=== PATIENT | female | born 1955 | race Caucasian/White ===

== ENCOUNTER → 2016-04-14 | Day surgery (SDC) | payer BC ==
[2016-03-30 14:51] VITALS: Ht 165.1 cm; Wt 110.5 kg
[~2016-04-14] VITALS: Ht 165.1 cm; Wt 110.5 kg
[~2016-04-14] MED LIST: 500ML BSS 0.3ML EPI 1:1000PF IRRIG ONE; ACETAMINOPHEN 325 MG TAB PO PRN; AMVISC PLUS 0.8ML SYRINGE INT OCU ONE; ATOR-22 PO; ATROPINE SULFATE 0.1 MG/ML 5ML SYR IV PRN; AcetaZOLAMIDE 250 MG TAB PO SCH; B-CO1CAP5 PO; BETAXOLOL HCL 0.25% OP SUSP PER DROP CHARGE OPR SCH; BRIMONIDINE TART 0.2% OP SOLN PER DROP CHARGE ONE; BSS FLUSH ONE; BUPR150T5 PO; CHOL1TAB46 PO; CLB/200 PO; DEXL60CA4 PO; ESCI10TA17 PO; EpINEphrine INJ 1MG/ML AMP 1 MG/ML AMP ONE; GABA-112 PO; IMD/2 PO; LACTATED RINGER'S 1000ML 500 ML IV SCH; LEVO125T72 PO; LIDOCAINE 4% OP SOLN DROP CHARGE ONE; LIDOCAINE 4% OP SOLN DROP CHARGE OPR SCH; LIDOCAINE HCL 1% MPF 2 ML VIAL ONE; LIOT50TA3 PO; LVQ750 PO; MELATAB2 PO; MIDAZOLAM HCL 1 MG/ML 2ML VIAL ONE; MIX: 4ML BSS 1ML EPI 1:1000 PF INSTIL ONE; MOXIFLOXACIN OPH SOLN PER DROP CHARGE ONE; NF1317 PO; OCUCOAT 1 ML SOLN IO ONE; POVIDONE-IODINE OP SOLN 30 ML BTL ONE; PRED1SUS3 OPR; PROPARACAINE 0.5% OP SOLN PER DROP CHARGE OPR SCH; RANI300T2 PO; TOBRAMYCIN/DEXAMETHASONE OPH OINT PER APPLN CHARGE ONE; TRAM-10 PO; VISCOAT 0.5ML SYRINGE INT OCU ONE; ZOLP10TA PO
--- NOTE | 2016-04-14 06:29 | History & Physical Bridge - [place] ---
H&P Re-Evaluation Bridge Note: I have examined the patient, reviewed the History & Physical and in the interval since the performance of the History & Physical I have noted the following changes of clinical significance: No changes noted
[2016-04-14] MEDS: PHENYLEPHRINE HCL 2.5% OP SOLN PER DROP CHARGE OPR SCH ×2 (06:44→06:49)
[2016-04-14] MEDS: TROPICAMIDE 1% OP SOLN PER DROP CHARGE OPR SCH ×2 (06:45→06:50)
[2016-04-14] MEDS: CYCLOPENTOLATE HCL 1% OP SOLN PER DROP CHARGE OPR SCH ×2 (06:46→06:51)
[2016-04-14] MEDS: MOXIFLOXACIN OPH SOLN PER DROP CHARGE OPR SCH ×2 (06:47→06:56)
--- NOTE | 2016-04-14 07:37 | Discharge Instructions-SurgCtr ---
Discharge Instructions Visit Reason for Visit: Cataract Right Eye Discharge Discharge Diagnosis / Problem: lens implant right eye Discharge Goals Goal(s): Improve function Activity Recommendations Activity Limitations: resume your previous activity Lifting Limitations: no more than 10 pounds Exercise/Sports Limitations: gradually increase as tolerated May Resume Sexual Activity: when tolerated Shower/Bathe: tomorrow Driving or Machine Use: resume 1 day after discharge Anesthesia . Post Anesthesia Instructions: If you have had General Anesthesia or IV Sedation: * Do not drive today. * Resume driving when surgeon permits. * Do not make important decisions or sign legal documents today. * Call surgeon for: 1. Temperature elevations greater than 101 degrees F. 2. Uncontrollable pain. 3. Excessive bleeding. 4. Persistent nausea and vomiting. 5. Medication intolerance (nausea, vomiting or rash). * For nausea and vomiting use only clear liquids such as: tea, soda, bouillon until nausea subsides, then gradually increase diet as tolerated. * If you have any concerns or questions, call your surgeon's office. If physician is unavailable and it is an emergency, call 911 or go to the nearest emergency room. . Instructions / Follow-Up Instructions / Follow-Up ACTIVITY RECOMMENDATIONS: * Light activities. * Mild irritation and blurred vision are common for the first few days. * You may walk outside, read, watch television. * Redness around the white part of the eye is common. MEDICATIONS: Resume previous medications unless instructed otherwise by your surgeon. * Take white Diamox (Acetazolamide) tablet at 1 pm today. Start all eye drops at 1 pm today: * Eye drops (today and tomorrow): Prednisone - one drop in operative eye every 3 hours while awake Ofloxacin - one drop in operative eye every 3 hours while awake SPECIAL CARE INSTRUCTIONS: * Tape plastic shield over eye to sleep at night. Call your doctor at with any concerns or problems. FOLLOW UP VISIT: Follow-up with Dr Morales at [facility] office as scheduled. Diet Recommendations Home Diet: no limitations Procedures Procedures Performed: cataract extraction with lens implant Pending Studies Studies pending at discharge: no Medical Emergencies . Who to Call and When: Medical Emergencies: If at any time you feel your situation is an emergency, please call 911 immediately. . Non-Emergent Contact Non-Emergency issues call your: Gas Plant Technician Call Non-Emergent contact if: your pain is not controlled [phone] . . "Provider Documentation" section prepared by Álvaro Morales.
--- NOTE | 2016-04-14 07:40 | [facility] Operative Report ---
Operative Report Date of Service Apr 14, 2016. Operative Report 1. PREOPERATIVE DIAGNOSIS: Pre Senile nuclear cataract, right eye. 2. POSTOPERATIVE DIAGNOSIS: Pre Senile nuclear cataract, right eye. 3. PROCEDURE: Phacoemulsification of right cataract with posterior chamber lens implant, type Bausch [employer] Lomb, model ZXR00, power +23.0 diopters. ANESTHESIA: Local standby. SURGEON: Dr. Morales. COMPLICATIONS: None. OPERATING TIME: 10 minutes. 4. OPERATION AND FINDINGS: DESCRIPTION OF PROCEDURE: The right pupil was dilated. The anesthetic was administered using a topical technique. The right eye was prepped and draped. A speculum was placed. A clear corneal incision was formed. The chamber was filled with Amvisc Plus and Viscoat. Epinephrine solution was used. A paracentesis was placed. A capsulorrhexis was performed. The nucleus was hydrodissected. A dense lens was removed with phacoemulsification. Time was 8.26 seconds. The aspiration unit was used to remove the cortex. The capsule was filled with Amvisc Plus. The lens implant was folded and placed into the capsule. The incision was hydrated. The Amvisc was aspirated. The wound was secure. The chamber was deep. The pupil was round. TobraDex ointment and Vigamox solution were placed. The speculum was removed. The patient was returned to the Recovery Room in stable condition. I attest to the content of the Intraoperative Record and any orders documented therein. Any exceptions are noted below. The scribe's documentation has been prepared in my presence, under my direction and personally reviewed by me in its entirety. I confirm that the note above accurately reflects all work, treatment, procedures, and medical decision making performed by me. I personally scribed for Álvaro Morales M.D. ([facility]) on 04/14/16 at 07:40. Electronically submitted by Tamara Frost ([email or web address]).
[2016-04-14 07:43] VITALS: TEMP 37
--- NOTE | 2016-04-14 07:59 | Anesthesia Progress Nt - [facility] ---
Anesthesia Post Op Note Date & Time Apr 14, 2016 at 07:58 Vital Signs Vital Signs Past 12 Hours Date Time Temp Pulse Resp B/P Pulse Ox O2 Delivery O2 Flow Rate FiO2 04/14/16 07:43 37.0 64 16 152/102 97 Room Air 04/14/16 06:30 37.0 76 16 161/84 96 Room Air Notes Mental Status: alert / awake / arousable, participated in evaluation Pt Amnestic to Procedure: Yes Nausea / Vomiting: adequately controlled Pain: adequately controlled Airway Patency, RR, SpO2: stable & adequate BP & HR: stable & adequate Hydration State: stable & adequate Anesthetic Complications: no major complications apparent
[2016-04-14 08:09] VITALS: BP 137/94; PULSE 65; O2SAT 99
== END | disposition home or self-care (01) ==
LOC: X.SURG 06:18
PROVIDERS: ATTEND Specialist
DX: H25.11 Age-related nuclear cataract, right eye (principal); E03.9 Hypothyroidism, unspecified; E78.5 Hyperlipidemia, unspecified; M19.90 Unspecified osteoarthritis, unspecified site; K21.9 Gastro-esophageal reflux disease without esophagitis; E66.9 Obesity, unspecified

== ENCOUNTER → 2016-05-12 | Day surgery (SDC) | payer BC ==
[2016-05-07 13:08] VITALS: Ht 165.1 cm; Wt 111.8 kg
[~2016-05-12] VITALS: Ht 165.1 cm; Wt 111.8 kg
[~2016-05-12] MED LIST changes: +BETAXOLOL HCL 0.25% OP SUSP PER DROP CHARGE OPL SCH; -BETAXOLOL HCL 0.25% OP SUSP PER DROP CHARGE OPR SCH; +ENDOCOAT 0.85ML SYRINGE INT OCU ONE; +EpHEDrine SULFATE INJ 50 MG/ML AMP IV PRN; +LIDOCAINE 4% OP SOLN DROP CHARGE OPL SCH; -LIDOCAINE 4% OP SOLN DROP CHARGE OPR SCH; +PROPARACAINE 0.5% OP SOLN PER DROP CHARGE OPL SCH; -PROPARACAINE 0.5% OP SOLN PER DROP CHARGE OPR SCH; -VISCOAT 0.5ML SYRINGE INT OCU ONE
[2016-05-12] MEDS: PHENYLEPHRINE HCL 2.5% OP SOLN PER DROP CHARGE OPL SCH ×2 (09:58→10:09)
[2016-05-12] MEDS: TROPICAMIDE 1% OP SOLN PER DROP CHARGE OPL SCH ×2 (09:59→10:10)
[2016-05-12] MEDS: CYCLOPENTOLATE HCL 1% OP SOLN PER DROP CHARGE OPL SCH ×2 (10:00→10:05)
[2016-05-12] MEDS: MOXIFLOXACIN OPH SOLN PER DROP CHARGE OPL SCH ×2 (10:01→10:11)
--- NOTE | 2016-05-12 10:50 | Discharge Instructions-SurgCtr ---
Discharge Instructions Date of Service May 12, 2016. Visit Reason for Visit: Left Cataract Discharge Discharge Diagnosis / Problem: lens implant left eye Discharge Goals Goal(s): Improve function Activity Recommendations Activity Limitations: resume your previous activity Lifting Limitations: no more than 10 pounds Exercise/Sports Limitations: gradually increase as tolerated May Resume Sexual Activity: when tolerated Shower/Bathe: tomorrow Driving or Machine Use: resume 1 day after discharge Anesthesia . Post Anesthesia Instructions: If you have had General Anesthesia or IV Sedation: * Do not drive today. * Resume driving when surgeon permits. * Do not make important decisions or sign legal documents today. * Call surgeon for: 1. Temperature elevations greater than 101 degrees F. 2. Uncontrollable pain. 3. Excessive bleeding. 4. Persistent nausea and vomiting. 5. Medication intolerance (nausea, vomiting or rash). * For nausea and vomiting use only clear liquids such as: tea, soda, bouillon until nausea subsides, then gradually increase diet as tolerated. * If you have any concerns or questions, call your surgeon's office. If physician is unavailable and it is an emergency, call 911 or go to the nearest emergency room. . Instructions / Follow-Up Instructions / Follow-Up ACTIVITY RECOMMENDATIONS: * Light activities. * Mild irritation and blurred vision are common for the first few days. * You may walk outside, read, watch television. * Redness around the white part of the eye is common. MEDICATIONS: Resume previous medications unless instructed otherwise by your surgeon. * Take white Diamox (Acetazolamide) tablet at 1 pm today. Start all eye drops at 1 pm today: * Eye drops (today and tomorrow): Prednisone - one drop in operative eye every 3 hours while awake Ofloxacin - one drop in operative eye every 3 hours while awake SPECIAL CARE INSTRUCTIONS: * Tape plastic shield over eye to sleep at night. Call your doctor at with any concerns or problems. FOLLOW UP VISIT: Follow-up with Dr Morales at [place] office as scheduled. Diet Recommendations Home Diet: no limitations Procedures Procedures Performed: cataract extraction with lens implant Pending Studies Studies pending at discharge: no Medical Emergencies . Who to Call and When: Medical Emergencies: If at any time you feel your situation is an emergency, please call 911 immediately. . Non-Emergent Contact Non-Emergency issues call your: Driver/Sales Workers Call Non-Emergent contact if: your pain is not controlled [phone] . . "Provider Documentation" section prepared by Álvaro Morales.
--- NOTE | 2016-05-12 10:53 | [facility] Operative Report ---
Operative Report Date of Service May 12, 2016. Operative Report 1. PREOPERATIVE DIAGNOSIS: Pre Senile nuclear cataract, left eye. 2. POSTOPERATIVE DIAGNOSIS: Pre Senile nuclear cataract, left eye. 3. PROCEDURE: Phacoemulsification of left cataract with posterior chamber lens implant, type [employer], model Symfony ZXR00, power +23.5 diopters. ANESTHESIA: Local standby. SURGEON: Dr. Morales. COMPLICATIONS: None. OPERATING TIME: 10 minutes. 4. OPERATION AND FINDINGS: DESCRIPTION OF PROCEDURE: The left pupil was dilated. The anesthetic was administered using a topical technique. The left eye was prepped and draped. A speculum was placed. A clear corneal incision was formed. The chamber was filled with Amvisc Plus and Endocoat. Epinephrine solution was used. A paracentesis was placed. A capsulorrhexis was performed. The nucleus was hydrodissected. The lens was removed with phacoemulsification. Time was 6.12 seconds. The aspiration unit was used to remove the cortex. The capsule was filled with Amvisc Plus. The lens implant was folded and placed into the capsule. The incision was hydrated. The Amvisc was aspirated. The wound was secure. The chamber was deep. The pupil was round. Brimonidine, TobraDex ointment and Vigamox solution were placed. The speculum was removed. The patient was returned to the Recovery Room in stable condition. I attest to the content of the Intraoperative Record and any orders documented therein. Any exceptions are noted below. The scribe's documentation has been prepared in my presence, under my direction and personally reviewed by me in its entirety. I confirm that the note above accurately reflects all work, treatment, procedures, and medical decision making performed by me. I personally scribed for Álvaro Morales M.D. ([facility]) on 05/12/16 at 10:53. Electronically submitted by Tamara Frost ([email or web address]).
--- NOTE | 2016-05-12 11:07 | Anesthesia Progress Nt - [facility] ---
Anesthesia Post Op Note Date & Time May 12, 2016 at 11:08 Vital Signs Pain Intensity: 0 Vital Signs Past 12 Hours Date Time Temp Pulse Resp B/P Pulse Ox O2 Delivery O2 Flow Rate FiO2 05/12/16 10:55 36.2 70 16 152/98 98 Room Air 05/12/16 09:53 36.5 76 18 121/86 97 Room Air Notes Mental Status: alert / awake / arousable, participated in evaluation Pt Amnestic to Procedure: Yes Nausea / Vomiting: adequately controlled Pain: adequately controlled Airway Patency, RR, SpO2: stable & adequate BP & HR: stable & adequate Hydration State: stable & adequate Anesthetic Complications: no major complications apparent
[2016-05-12 11:19] VITALS: BP 144/86; PULSE 63; O2SAT 97
== END | disposition home or self-care (01) ==
LOC: X.SURG 09:37
PROVIDERS: ATTEND Specialist
DX: H25.12 Age-related nuclear cataract, left eye (principal)

== ENCOUNTER → 2016-07-06 | Outpatient (CLI) | payer BC ==
[~2016-07-06] MED LIST changes: -500ML BSS 0.3ML EPI 1:1000PF IRRIG ONE; -ACETAMINOPHEN 325 MG TAB PO PRN; -AMVISC PLUS 0.8ML SYRINGE INT OCU ONE; -ATROPINE SULFATE 0.1 MG/ML 5ML SYR IV PRN; -AcetaZOLAMIDE 250 MG TAB PO SCH; -BETAXOLOL HCL 0.25% OP SUSP PER DROP CHARGE OPL SCH; -BRIMONIDINE TART 0.2% OP SOLN PER DROP CHARGE ONE; -BSS FLUSH ONE; -ENDOCOAT 0.85ML SYRINGE INT OCU ONE; -EpHEDrine SULFATE INJ 50 MG/ML AMP IV PRN; -EpINEphrine INJ 1MG/ML AMP 1 MG/ML AMP ONE; -LACTATED RINGER'S 1000ML 500 ML IV SCH; -LIDOCAINE 4% OP SOLN DROP CHARGE ONE; -LIDOCAINE 4% OP SOLN DROP CHARGE OPL SCH; -LIDOCAINE HCL 1% MPF 2 ML VIAL ONE; -MIDAZOLAM HCL 1 MG/ML 2ML VIAL ONE; -MIX: 4ML BSS 1ML EPI 1:1000 PF INSTIL ONE; -MOXIFLOXACIN OPH SOLN PER DROP CHARGE ONE; -OCUCOAT 1 ML SOLN IO ONE; -POVIDONE-IODINE OP SOLN 30 ML BTL ONE; -PROPARACAINE 0.5% OP SOLN PER DROP CHARGE OPL SCH; -TOBRAMYCIN/DEXAMETHASONE OPH OINT PER APPLN CHARGE ONE
--- NOTE | 2016-07-06 14:56 | DIAGNOSTIC IMAGING REPORT ---
CT SCAN OF THE PARANASAL SINUSES CLINICAL HISTORY: Nasal turbinate hypertrophy. Headache. COMPARISON STUDY: CT of the brain dated 06/05/2014. TECHNIQUE: High-resolution CT scan of the paranasal sinuses is performed. Images are reviewed in the axial, sagittal, and coronal planes. IV contrast was not administered for this examination. The examination is performed using the fusion protocol. CT DOSE: 712.99 mGycm FINDINGS: Maxillary antra: Trace mucosal thickening seen bilaterally. There are large bony defects within the medial wall of the maxillary antrum bilaterally. This could be on a congenital or postoperative basis. Anterior ethmoid sinuses: Clear. Posterior ethmoid sinuses: Clear. Sphenoid sinuses: Trace mucosal thickening seen bilaterally, left greater than right.. Frontal sinuses: Trace mucosal thickening is seen on the right. Clear on the left. Ostiomeatal complexes: Patent bilaterally. Frontoethmoidal and sphenoethmoidal recesses: Patent bilaterally. Carotid arteries: The carotid arteries are covered noting a septal attachment on the right. Ethmoid roofs: The ethmoid roofs are symmetric. Nasal turbinates: Normal in appearance. Nasal septum: There is minimal rightward deviation of the bony nasal septum. Optic nerves: Covered. Orbits: The bony orbits are intact. Orbital contents are normal in appearance noting bilateral ocular lens implants. Calvarium: Skeletal structures are osteopenic. The imaged calvarium is normal in appearance. Mastoid air cells: Well pneumatized. Brain parenchyma: Partially visualized brain parenchyma is within normal limits. IMPRESSION: 1. No significant paranasal sinus disease. 2. There are bony defects within the medial wall of both maxillary antra. The could be on a congenital or postoperative basis. Electronically signed by: Messi Patricia M.D. 07/06/2016 2:54 PM Dictated Date/Time: 07/06/2016 2:50 PM
== END | disposition home or self-care (01) ==
LOC: C.CTS 14:15
DX: J34.3 Hypertrophy of nasal turbinates (principal); R93.0 Abnormal findings on diagnostic imaging of skull and head, not elsewhere classified

== ENCOUNTER → 2016-07-06 | Outpatient (CLI) | payer BC ==
[2016-07-06 14:02] LABS: ESTIMATED AVERAGE GLUCOSE 123 mg/dl; HA1C FLAG Normal (Normal)
[2016-07-06 15:03] LABS: ALB/GLOB RATIO 0.9 (0.9-2); ALKALINE PHOSPHATASE 100 U/L (45-117); ALT/SGPT 30 U/L (12-78); BLOOD UREA NITROGEN 11 mg/dl (7-18); BUN/CREATININE RATIO 9.7 (10-20); CARBON DIOXIDE 25 mmol/L (21-32); CHLORIDE 107 mmol/L (98-107); CHOLESTEROL 165 mg/dl (0-200); CHOLESTEROL/HDL RATIO 3.6; GLUCOSE 98 mg/dl (70-99); HDL CHOLESTEROL 46 mg/dl; LDL CHOLESTEROL CALCULATED 78 mg/dl; POTASSIUM 3.8 mmol/L (3.5-5.1); SODIUM 142 mmol/L (136-145); TRIGLYCERIDES 204 mg/dl (0-150); VERY LOW DENSITY LIPOPROT CALC 41 mg/dl
[2016-07-06 15:08] LABS: CALCIUM 9.9 mg/dl (8.5-10.1)
[2016-07-06 15:14] LABS: AST/SGOT 18 U/L (15-37); THYROID STIMULATING HORMONE 0.429 uIu/ml (0.300-4.500)
== END | disposition home or self-care (01) ==
LOC: C.LAB1850 12:29
PROVIDERS: ATTEND Family Medicine
DX: E03.9 Hypothyroidism, unspecified (principal); E78.00 Pure hypercholesterolemia, unspecified; R73.01 Impaired fasting glucose

== ENCOUNTER → 2016-08-09 | Outpatient (CLI) | payer BC ==
[2016-08-09 18:46] LABS: LYME DISEASE AB IGG NEG (NEG); LYME DISEASE AB IGM NEG (NEG)
== END | disposition home or self-care (01) ==
LOC: C.LAB1850 16:59
PROVIDERS: ATTEND Nurse Practitioner Adult Health
DX: M25.50 Pain in unspecified joint (principal)

== ENCOUNTER 2016-09-22 15:49 | Inpatient (IN) | payer BC ==
[~2016-09-22] VITALS: Ht 175.3 cm; Wt 115.4 kg
[~2016-09-22 15:49] MED LIST changes: -B-CO1CAP5 PO; -BUPR150T5 PO; -DEXL60CA4 PO; -LVQ750 PO; -RANI300T2 PO
[2016-09-22] MEDS ORDERED: PROCHLORPERAZINE 5 MG/ML 2 ML VIAL IV STA (16:16)
[2016-09-22] MEDS ORDERED: KETOROLAC TROMETHAMINE 30 MG/ML VIAL IV STA (16:16)
[2016-09-22] MEDS ORDERED: SODIUM CHLORIDE 0.9% 1000ML 1,000 ML IV ONE (16:16)
[2016-09-22] MEDS ORDERED: DiphenhydrAMINE HCL 50 MG/ML VIAL IV STA (16:16)
--- NOTE | 2016-09-22 16:25 | EMERGENCY ROOM VISIT NOTE ---
History Report prepared by Birgit: Patrica Osorio Under the Supervision of: Dr. Irvin Flores M.D. First contact with patient: 16:07 Chief Complaint: HEADACHE Stated Complaint: HEADACHE, AB & CHEST PAIN, NAUSEA, History of Present Illness The patient is a 61 year old female who presents to the Emergency Room with complaints of persistent headache that started this morning. She states that she woke up this morning with chills, dizziness, and felt light-headed. The patient also noted that she has neck stiffness and lower abdominal pain. She also has been having periodic coughing which worsens at night. The patient states that she has had 3 episodes of vomiting in the past day. She has a notable rash on her left shoulder and history of headaches. Nothing has improved her symptoms. Source of History: patient Onset: This morning Position: head Timing: other (persistent) Modifying Factors (Relieving): other (none) Associated Symptoms: + chills, + cough (worse at night), + neck pain ( stiffness), + vomiting, + abdominal pain Note: dizziness and feeling light-headed Review of Systems See HPI for pertinent positives & negatives. A total of 10 systems reviewed and were otherwise negative. Past Medical & Surgical Medical Problems: (1) Pneumonia Family History No pertinent family history stated. Social History Smoking Status: Former Smoker Current/Historical Medications Scheduled Atorvastatin (Lipitor), 20 MG PO QAM B-Complex W/Biotin & Folic Aci (Super B-Complex), 1 CAP PO DAILY Bupropion Hcl (Bupropion Hcl Xl), 150 MG PO DAILY Celecoxib (CeleBREX), 200 MG PO HS Cholecalciferol (Vitamin D3), 1 TAB PO QPM Dexlansoprazole (Dexilant), 60 MG PO QAM Escitalopram (Lexapro), 10 MG PO QAM Gabapentin (Neurontin), 100 MG PO BID Gabapentin (Neurontin), 3 TABS PO HS Levofloxacin (Levofloxacin), 750 MG PO DAILY Levothyroxine Sodium (Synthroid), 125 MCG PO QAM Liothyronine Sodium (Liothyronine Sodium), 0.5 TAB PO QAM Melatonin (Melatonin Maximum Strengt), 1 TAB PO HS Prednisolone Acetate (Ophth) (Pred Forte 1% Oph), 1 DROPS OPR TID Ranitidine (Zantac), 300 MG PO HS Scheduled PRN Loperamide Hcl (Imodium), 2 MG PO UD PRN for Diarrhea Tramadol (Ultram), 1-2 TABS PO Q8H PRN for Pain Zolpidem Tartrate (Ambien), 10 MG PO HS PRN for Insomnia Allergies Coded Allergies: No Known Allergies (Unverified , 05/12/16) Physical Exam Vital Signs Date Time Temp Pulse Resp B/P (MAP) Pulse Ox O2 Delivery O2 Flow Rate FiO2 09/22/16 18:49 97 16 94/57 99 Room Air 09/22/16 17:50 72 16 132/70 98 Room Air 09/22/16 16:59 98 Room Air 09/22/16 16:17 100 09/22/16 16:06 36.8 100 16 119/64 94 Room Air Physical Exam GENERAL: Patient is a healthy-appearing well-nourished female HEAD: Normocephalic atraumatic EYES: Ocular movements intact pupils equal and react to light OROPHARYNX mucous membranes are moist no exudates present no erythema or edema present NECK: Supple no nuchal rigidity CHEST: Good equal expansion LUNGS: Clear and equal to auscultation CARDIAC: Normal S1 and S2 ABDOMEN: Soft nontender no guarding BACK: No CVA tenderness EXTREMITIES: No pain upon palpation normal muscle strength in all groups no clubbing cyanosis or edema NEURO: Patient is following commands and answering questions appropriately. Alert and oriented x3 Cranial Nerves 2-12 grossly intact Medical Decision & Procedures ER Provider Diagnostic Interpretation: Radiology results as stated below per my review and radiologist interpretation: ABD/PELVIS IV CONTRAST ONLY HISTORY: 61 years-old Female acute epigastric pain COMPARISON: CT abdomen and pelvis 07/30/2013 TECHNIQUE: Multiple axial CT images of the abdomen and pelvis were obtained following the intravenous administration of 114 mL Optiray 320. A dose lowering technique was used consistent with the principals of ALARA. FINDINGS: Partially imaged patchy groundglass and consolidative opacities are present within a bronchovascular distribution within the right middle and lower lobes. Minimal groundglass opacities in the left lung base suggest atelectasis. There is no pneumoperitoneum. The inferior cardiac chambers are unremarkable. The liver, spleen, pancreas and adrenal glands appear normal with the exception of minimal nodular thickening of the right adrenal gland suggesting hyperplasia. There is a 4 mm area of increased attenuation involving the nondependent fundal gallbladder as seen on image 128 of the axial series suggesting gallbladder polyp, in retrospect also present on comparison study. 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 Kidneys are otherwise within normal limits. Ureters and urinary bladder are unremarkable. Prior hysterectomy. There is moderate atherosclerotic plaquing of the abdominal aorta without pathologic adenopathy. Moderate sized hiatal hernia with partially intrathoracic stomach is noted. There is no bowel obstruction. Extensive sigmoid diverticulosis is noted without definite evidence of acute diverticulitis. The appendix appears normal. The soft tissues are unremarkable. The bones are intact. IMPRESSION: 1. Partially imaged bronchovascular distribution of groundglass and consolidative opacities within the right middle and right lower lobes suggests bronchopneumonia in the appropriate clinical setting. 2. No acute intra-abdominal or intrapelvic abnormality is identified. 3. Extensive sigmoid colonic diverticulosis without diverticulitis. 4. 4 mm echogenic focus along the nondependent fundal gallbladder lumen suggests polyp. This could be further evaluated with dedicated ultrasound. 5. Normal appendix. The above report was generated using voice recognition software. It may contain grammatical, syntax or spelling errors. Electronically signed by: Edmund Herring M.D. CHEST ONE VIEW PORTABLE CLINICAL HISTORY: Sepsis COMPARISON STUDY: None FINDINGS: The heart is at the upper limits of normal in size. There are right mid to lower lung zone airspace opacity suspicious for a pneumonia. Clinical and radiographic follow-up is recommended. There is no overt failure. There are no significant pleural effusions.[ IMPRESSION: Right mid to lower lung zone airspace opacity suspicious for a pneumonia. Clinical and radiographic follow-up is recommended. Electronically signed by: Andi Rebolledo M.D. HEAD WITHOUT CONTRAST (CT) CLINICAL HISTORY: 61 years-old Female with Pt c/o severe headache. Symptoms are acute in nature TECHNIQUE: Multiple axial CT images of the head were obtained without contrast. A dose lowering technique was utilized adhering to the principles of ALARA. CT DOSE: 601.98 mGy.cm COMPARISON: CT head 06/05/2014. FINDINGS: No acute intracranial hemorrhage, midline shift, mass, large territorial ischemia or abnormal extra-axial collection. 7 mm focus of low attenuation within the inferior right lentiform nucleus is unchanged suggesting prominent perivascular space or alternatively a remote lacunar infarction. The calvarium is intact. The mastoid air cells, and middle ear cavities are clear. There is minimal ethmoid and sphenoid sinus disease present. There has been prior bilateral cataract repair. IMPRESSION: No acute intracranial abnormality. The above report was generated using voice recognition software. It may contain grammatical, syntax or spelling errors. Electronically signed by: Edmund Herring M.D. Laboratory Results 09/22/16 17:25 Test 09/22/16 16:30 09/22/16 17:25 09/22/16 17:39 09/22/16 17:47 Prothrombin Time 10.6 SECONDS (9.0-12.0) Prothromb Time International Ratio 1.0 (0.9-1.1) Activated Partial Thromboplast Time 28.1 SECONDS (21.0-31.0) Partial Thromboplastin Ratio 1.1 BUN/Creatinine Ratio 17.9 (10-20) Calcium Level 8.3 mg/dl (8.5-10.1) Total Bilirubin 0.4 mg/dl (0.2-1) Aspartate Amino Transf (AST/SGOT) 13 U/L (15-37) Alanine Aminotransferase (ALT/SGPT) 20 U/L (12-78) Alkaline Phosphatase 87 U/L (45-117) Total Creatine Kinase 43 U/L (26-192) Creatine Kinase MB < 0.5 ng/ml (0.5-3.6) Creatine Kinase MB Ratio (0-3.0) Troponin I < 0.015 ng/ml (0-0.045) Total Protein 6.4 gm/dl (6.4-8.2) Albumin 2.9 gm/dl (3.4-5.0) Globulin 3.5 gm/dl (2.5-4.0) Albumin/Globulin Ratio 0.8 (0.9-2) Lyme Disease IgG Antibody NEG (NEG) Lyme Disease IgM Antibody NEG (NEG) Bedside Lactic Acid Venous 2.13 mmol/L (0.90-1.70) Bedside Hemoglobin 11.2 g/dl (12.0-16.0) Bedside Hematocrit 33 % (37-47) Bedside Sodium 141 mEq/L (135-144) Bedside Potassium 3.6 mEq/L (3.3-5.0) Bedside Chloride 104 mEq/L (101-112) Bedside Total CO2 24 mEq/l (24-31) Anion Gap 18.0 mmol/L (16-25) Bedside Blood Urea Nitrogen 22 mg/dl (7-18) Bedside Creatinine 1.0 mg/dl (0.6-1.3) Bedside Glucose (other) 116 mg/dl (70-99) Bedside Ionized Calcium ([place]) 1.21 mmol/l (1.12-1.32) Test 09/22/16 20:08 Urine Color YELLOW Urine Appearance CLEAR (CLEAR) Urine pH 6.5 (4.5-7.5) Urine Specific [place] 1.033 (1.000-1.030) Urine Protein NEG (NEG) Urine Glucose (UA) NEG (NEG) Urine Ketones NEG (NEG) Urine Occult Blood NEG (NEG) Urine Nitrite NEG (NEG) Urine Bilirubin NEG (NEG) Urine Urobilinogen NEG (NEG) Urine Leukocyte Esterase NEG (NEG) Urine WBC (Auto) 1-5 /hpf (0-5) Urine RBC (Auto) 0-4 /hpf (0-4) Urine Hyaline Casts (Auto) 1-5 /lpf (0-5) Urine Epithelial Cells (Auto) 20-30 /lpf (0-5) Urine Bacteria (Auto) 1+ (NEG) Date/Time Source Procedure Growth Status 09/22/16 20:08 Urine , Clean Catch Urine Culture - Final NO GROWTH - LESS THAN 1,000 COLONIES/ML Complete Labs reviewed by ED physician. Medications Administered Medications (Trade) Dose Ordered Sig/Mary Route Start Time Stop Time Status Last Admin Dose Admin Sodium Chloride 1,000 ml @ 999 mls/hr Q1H1M ONCE IV 09/22/16 16:16 09/22/16 17:16 DC 09/22/16 16:54 999 MLS/HR Ketorolac Tromethamine (Toradol Inj) 30 mg NOW STAT IV 09/22/16 16:16 09/22/16 16:20 DC 09/22/16 16:55 30 MG Prochlorperazine Edisylate (Compazine Inj) 10 mg NOW STAT IV 09/22/16 16:16 09/22/16 16:20 DC 09/22/16 16:55 10 MG Diphenhydramine HCl (Benadryl Inj) 50 mg NOW STAT IV 09/22/16 16:16 09/22/16 16:20 DC 09/22/16 16:55 50 MG Sodium Chloride 1,000 ml @ 999 mls/hr Q1H1M STAT IV 09/22/16 16:56 09/22/16 17:56 DC 09/22/16 17:51 999 MLS/HR Sodium Chloride 500 ml @ 999 mls/hr Q31M STAT IV 09/22/16 16:56 09/22/16 17:27 DC 09/22/16 17:51 999 MLS/HR Piperacillin Sod/ Tazobactam Sod (Zosyn Iv) 4.5 gm NOW STAT IV 09/22/16 17:02 09/22/16 17:05 DC 09/22/16 19:10 4.5 GM Levofloxacin (Levaquin / D5W) 750 mg NOW STAT IV 09/22/16 17:02 09/22/16 17:05 DC 09/22/16 17:46 750 MG Vancomycin HCl 1000 mg/Sodium Chloride 270 ml @ 125 mls/hr NOW STAT IV 09/22/16 17:02 09/22/16 19:11 DC 09/22/16 19:57 125 MLS/HR Sodium Chloride 1,000 ml @ 999 mls/hr Q1H1M STAT IV 09/22/16 17:55 09/22/16 18:55 DC 09/22/16 20:13 999 MLS/HR ECG Indication: chest pain Rate (beats per minute): 96 Rhythm: normal sinus Findings: T-wave inversion (Anterior), no acute ischemic change ED Course 1611: Past medical records reviewed. The patient was evaluated in room A11. A complete history and physical examination was performed. 1616: Ordered Benadryl 50 mg IV, Compazine Inj 10 mg IV, Toradol Inj 30 mg IV, Sodium Chloride 1000 ml @ 999 mls/hr. 1630: Ioversol 125 ml IV 1656: Sodium Chloride 500 ml @ 999 mls/hr, Sodium Chloride 1000 ml @ 999 mls/hr. 1702: Vancomycin HCl 1000 mg/Sodium Chloride 1755: Sodium Chloride 1000 ml @ 999 mls/hr. 1911: Upon reexamination the patient is resting. I discussed results and treatment plan with the patient. She verbalizes agreement and understanding. I spoke with Dr. Morrison from the [facility] Hospitalist Service. The patient will be evaluated for further management. Medical Decision Differential diagnosis: Etiologies such as migraine headache, meningitis, sinusitis, CO exposure, ICH, SAH, infection, tumor, headache, sinus thrombosis, arterial dissection, as well as others were entertained. This is a 61-year-old female who presents emergency department complaining of severe headache and cough. I do not believe that the patient has any evidence of meningitis or encephalitis on examination however I noted to the patient the only way to rule this out was be a lumbar puncture. The patient refused lumbar puncture in the emergency department. She does have evidence of pneumonia on her chest x-ray however she also has a positive d-dimer. Her white blood cell count is grossly elevated therefore the patient was started on broad-spectrum antibiotics including Zosyn and Levaquin and vancomycin. The patient was given a 30 mL's per kilogram of fluid. She was also given Toradol Compazine and Benadryl. Repeat examination revealed much improvement the patient's symptoms. The patient does have an elevation in her lactate and based on the white blood cell count I did ask for the medicine service to admit her. Patient and family were in agreement with the treatment plan. Consults Time Called: 1902 Consulting Physician: Dr. Staton- [facility] [place] Returned Call: 1910 I discussed the patient's case with Dr. Staton, He has agreed to evaluate the patient for further management and care. Impression Primary Impression: Pneumonia Critical Care I have personally spent greater than 30 minutes of critical care time in the direct management of this patient. This includes bedside care, interpretation of diagnostic studies, and testing, discussion with consultants, patient, and family members, and other required patient management activities. This 30 minutes is in excess of all separately billable procedures. Scribe Attestation The scribe's documentation has been prepared under my direction and personally reviewed by me in its entirety. I confirm that the note above accurately reflects all work, treatment, procedures, and medical decision making performed by me. Departure Information Dispostion Being Evaluated By Hospitalist Prescriptions Levofloxacin (Levofloxacin) 750 Mg Tab 750 MG PO DAILY for 10 Days, #10 TAB 0 Refills Prov: Pina Lopez M.D. 09/23/16 Referrals Apurva Hodges DO (PCP) Patient Instructions My [facility] Problem Qualifiers Primary Impression: Pneumonia Pneumonia type: due to unspecified organism Laterality: unspecified laterality Lung location: unspecified part of lung Qualified Codes: J18.9 - Pneumonia, unspecified organism
[2016-09-22] MEDS ORDERED: OPTIRAY 320 IV PRN (16:30)
[2016-09-22] MEDS ORDERED: BUPR150T5 PO (16:32)
[2016-09-22] MEDS ORDERED: RANI300T2 PO (16:32)
[2016-09-22] MEDS ORDERED: B-CO1CAP5 PO (16:32)
[2016-09-22] MEDS ORDERED: DEXL60CA4 PO (16:32)
--- NOTE | 2016-09-22 16:40 | DIAGNOSTIC IMAGING REPORT ---
CHEST ONE VIEW PORTABLE CLINICAL HISTORY: Sepsis COMPARISON STUDY: None FINDINGS: The heart is at the upper limits of normal in size. There are right mid to lower lung zone airspace opacity suspicious for a pneumonia. Clinical and radiographic follow-up is recommended. There is no overt failure. There are no significant pleural effusions.[ IMPRESSION: Right mid to lower lung zone airspace opacity suspicious for a pneumonia. Clinical and radiographic follow-up is recommended. Electronically signed by: Andi Rebolledo M.D. 09/22/2016 4:39 PM Dictated Date/Time: 09/22/2016 4:38 PM
[2016-09-22 16:44] LABS: HEMATOCRIT 35.2 % (37-47); MEAN CELL VOLUME 78.2 fL (80-100); MEAN CORPUSCULAR HEMOGLOBIN 24.4 pg (25-34); MEAN CORPUSCULAR HGB CONC 31.3 g/dl (32-36); PLATELET COUNT 415 K/uL (130-400)
[2016-09-22] MEDS ORDERED: SODIUM CHLORIDE 0.9% 1000ML 1,000 ML IV STA ×2 (16:56→17:55)
[2016-09-22] MEDS ORDERED: SODIUM CHLORIDE 0.9% 500ML 500 ML IV STA (16:56)
[2016-09-22] MEDS ORDERED: LEVAQUIN 750MG / 150ML D5W IV STA (17:02)
[2016-09-22] MEDS ORDERED: VANCOMYCIN INJ 1,000 MG in SODIUM CHLORIDE 0.9% 250ML 250 ML IV STA (17:02)
[2016-09-22] MEDS ORDERED: PIPERACILLIN/TAZOBACTAM 4.5 GM/100ML D5W IV STA (17:02)
[2016-09-22 17:09] LABS: BASO % 0.1 %; BASO ABS # 0.03 K/uL (0-0.2); COMPLETE YES; IG% 0.4 %; LYMPH % 5.9 %; LYMPH ABS # 1.49 K/uL (1.2-3.4); MICROCYTOSIS PRESENT; MONO % 8.1 %; NEUT % 85.5 %
[2016-09-22 17:15] LABS: PARTIAL THROMBOPLASTIN RATIO 1.1; PROTHROMBIN TIME (PATIENT) 10.6 SECONDS (9.0-12.0)
[2016-09-22 18:00] LABS: ISTAT HEMOGLOBIN 11.2 g/dl (12.0-16.0); ISTAT IONIZED CALCIUM 1.21 mmol/l (1.12-1.32)
[2016-09-22 18:15] LABS: ALT/SGPT 20 U/L (12-78); AST/SGOT 13 U/L (15-37); BLOOD UREA NITROGEN 20 mg/dl (7-18); BUN/CREATININE RATIO 17.9 (10-20); CALCIUM 8.3 mg/dl (8.5-10.1); CARBON DIOXIDE 26 mmol/L (21-32); CHLORIDE 111 mmol/L (98-107); GLUCOSE 113 mg/dl (70-99); POTASSIUM 3.8 mmol/L (3.5-5.1); SODIUM 141 mmol/L (136-145)
[2016-09-22 18:20] LABS: ALB/GLOB RATIO 0.8 (0.9-2); ALKALINE PHOSPHATASE 87 U/L (45-117)
--- NOTE | 2016-09-22 18:43 | DIAGNOSTIC IMAGING REPORT ---
HEAD WITHOUT CONTRAST (CT) CLINICAL HISTORY: 61 years-old Female with Pt c/o severe headache. Symptoms are acute in nature TECHNIQUE: Multiple axial CT images of the head were obtained without contrast. A dose lowering technique was utilized adhering to the principles of ALARA. CT DOSE: 601.98 mGy.cm COMPARISON: CT head 06/05/2014. FINDINGS: No acute intracranial hemorrhage, midline shift, mass, large territorial ischemia or abnormal extra-axial collection. 7 mm focus of low attenuation within the inferior right lentiform nucleus is unchanged suggesting prominent perivascular space or alternatively a remote lacunar infarction. The calvarium is intact. The mastoid air cells, and middle ear cavities are clear. There is minimal ethmoid and sphenoid sinus disease present. There has been prior bilateral cataract repair. IMPRESSION: No acute intracranial abnormality. The above report was generated using voice recognition software. It may contain grammatical, syntax or spelling errors. Electronically signed by: Edmund Herring M.D. 09/22/2016 6:42 PM Dictated Date/Time: 09/22/2016 6:34 PM
--- NOTE | 2016-09-22 18:51 | DIAGNOSTIC IMAGING REPORT ---
ABD/PELVIS IV CONTRAST ONLY HISTORY: 61 years-old Female acute epigastric pain COMPARISON: CT abdomen and pelvis 07/30/2013 TECHNIQUE: Multiple axial CT images of the abdomen and pelvis were obtained following the intravenous administration of 114 mL Optiray 320. A dose lowering technique was used consistent with the principals of TOMÁS. FINDINGS: Partially imaged patchy groundglass and consolidative opacities are present within a bronchovascular distribution within the right middle and lower lobes. Minimal groundglass opacities in the left lung base suggest atelectasis. There is no pneumoperitoneum. The inferior cardiac chambers are unremarkable. The liver, spleen, pancreas and adrenal glands appear normal with the exception of minimal nodular thickening of the right adrenal gland suggesting hyperplasia. There is a 4 mm area of increased attenuation involving the nondependent fundal gallbladder as seen on image 128 of the axial series suggesting gallbladder polyp, in retrospect also present on comparison study. 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 Kidneys are otherwise within normal limits. Ureters and urinary bladder are unremarkable. Prior hysterectomy. There is moderate atherosclerotic plaquing of the abdominal aorta without pathologic adenopathy. Moderate sized hiatal hernia with partially intrathoracic stomach is noted. There is no bowel obstruction. Extensive sigmoid diverticulosis is noted without definite evidence of acute diverticulitis. The appendix appears normal. The soft tissues are unremarkable. The bones are intact. IMPRESSION: 1. Partially imaged bronchovascular distribution of groundglass and consolidative opacities within the right middle and right lower lobes suggests bronchopneumonia in the appropriate clinical setting. 2. No acute intra-abdominal or intrapelvic abnormality is identified. 3. Extensive sigmoid colonic diverticulosis without diverticulitis. 4. 4 mm echogenic focus along the nondependent fundal gallbladder lumen suggests polyp. This could be further evaluated with dedicated ultrasound. 5. Normal appendix. The above report was generated using voice recognition software. It may contain grammatical, syntax or spelling errors. Electronically signed by: Edmund Herring M.D. 09/22/2016 6:50 PM Dictated Date/Time: 09/22/2016 6:42 PM
[2016-09-22 19:16] LABS: LYME DISEASE AB IGG NEG (NEG); LYME DISEASE AB IGM NEG (NEG)
[2016-09-22] MEDS ORDERED: ZOLPIDEM TARTRATE 5 MG TAB PO PRN (20:15)
[2016-09-22] MEDS ORDERED: ONDANSETRON INJ 2 MG/ML 2 ML VIAL IV PRN (20:15)
[2016-09-22] MEDS ORDERED: POLYETHYLENE (MIRALAX) 17 GM PACK PO PRN (20:15)
[2016-09-22] MEDS ORDERED: ALUMINUM/MAGNESIUM/SIMETH (MAALOX MAX) 30 ML UDC PO PRN (20:15)
[2016-09-22] MEDS: ACETAMINOPHEN 325 MG TAB PO PRN (20:17)
--- NOTE | 2016-09-22 20:29 | History and Physical ---
History & Physical Date & Time of Service: Sep 22, 2016 at 20:29 Chief Complaint: Headache, Ab & Chest Pain, Nausea, Primary Care Physician: Apurva Hodges DO History of Present Illness Source: patient Mrs Grey is a 61 yo F who initially presented with a severe headache. He reports she woke up with fever and chills. She had felt dizzy and lightheaded, and started vomiting. She was found to have a right mid and lower lobe pneumonia. She reported feeling much better after receiving some antibiotics, pain medications and fluids. She reports the headache is improved. She denies ever having a pneumonia before. She denies being in the hospital recently. Past Medical/Surgical History Medical Problems: (1) Pneumonia 2. Hyperlipidemia 3. Depression with anxiety 4. Peripheral neuropathy 5. Hypothyroidism 6. GERD 7. Insomnia 8. Obesity 9. Arthritis Family History No pertinent FHx Social History Smoking Status: Former Smoker (Stopped in 1989) Smokeless Tobacco Use: No Alcohol Use: socially Drug Use: none Marital Status: Housing status: lives with family Occupational Status: employed Immunizations History of Influenza Vaccine: Unknown History of Tetanus Vaccine?: Unknown History of Pneumococcal: Unknown History of Hepatitis B Vaccine: Unknown Multi-Drug Resistant Organisms History of MDRO: No Allergies Coded Allergies: No Known Allergies (Unverified , 05/12/16) Home Medications Scheduled Atorvastatin (Lipitor), 20 MG PO QAM B-Complex W/Biotin & Folic Aci (Super B-Complex), 1 CAP PO DAILY Bupropion Hcl (Bupropion Hcl Xl), 150 MG PO DAILY Celecoxib (CeleBREX), 200 MG PO HS Cholecalciferol (Vitamin D3), 1 TAB PO QPM Dexlansoprazole (Dexilant), 60 MG PO QAM Escitalopram (Lexapro), 10 MG PO QAM Gabapentin (Neurontin), 100 MG PO BID Gabapentin (Neurontin), 3 TABS PO HS Levothyroxine Sodium (Synthroid), 125 MCG PO QAM Liothyronine Sodium (Liothyronine Sodium), 0.5 TAB PO QAM Melatonin (Melatonin Maximum Strengt), 1 TAB PO HS Prednisolone Acetate (Ophth) (Pred Forte 1% Oph), 1 DROPS OPR TID Ranitidine (Zantac), 300 MG PO HS Scheduled PRN Loperamide Hcl (Imodium), 2 MG PO UD PRN for Diarrhea Tramadol (Ultram), 1-2 TABS PO Q8H PRN for Pain Zolpidem Tartrate (Ambien), 10 MG PO HS PRN for Insomnia Review of Systems See HPI for pertinent positives & negatives. A total of 10 systems reviewed and were otherwise negative. Physical Exam Vital Signs Date Time Temp Pulse Resp B/P (MAP) Pulse Ox O2 Delivery O2 Flow Rate FiO2 09/22/16 18:49 97 16 94/57 99 Room Air 09/22/16 17:50 72 16 132/70 98 Room Air 09/22/16 16:59 98 Room Air 09/22/16 16:17 100 09/22/16 16:06 36.8 100 16 119/64 94 Room Air General Appearance: WD/WN, no apparent distress Head: normocephalic, atraumatic Eyes: normal inspection ENT: hearing grossly normal Neck: supple, no JVD Respiratory/Chest: lungs clear, + crackles (soft crackles R midzone) Cardiovascular: regular rate, rhythm, no murmur, normal peripheral pulses Abdomen/GI: normal bowel sounds, non tender, soft Back: no CVA tenderness, no muscle spasm Extremities/Musculoskelatal: no calf tenderness, no pedal edema Neurologic/Psych: no motor/sensory deficits, alert, normal mood/affect Skin: no rash Diagnostics Laboratory Results Results Past 24 Hours Test 09/22/16 16:30 09/22/16 17:25 09/22/16 17:39 09/22/16 17:47 Range/Units White Blood Count 25.40 4.8-10.8 K/uL Red Blood Count 4.50 4.2-5.4 M/uL Hemoglobin 11.0 12.0-16.0 g/dL Hematocrit 35.2 37-47 % Mean Corpuscular Volume 78.2 80-100 fL Mean Corpuscular Hemoglobin 24.4 25-34 pg Mean Corpuscular Hemoglobin Concent 31.3 32-36 g/dl Platelet Count 415 130-400 K/uL Mean Platelet Volume 10.0 7.4-10.4 fL Neutrophils (%) (Auto) 85.5 % Lymphocytes (%) (Auto) 5.9 % Monocytes (%) (Auto) 8.1 % Eosinophils (%) (Auto) 0.0 % Basophils (%) (Auto) 0.1 % Neutrophils # (Auto) 21.71 1.4-6.5 K/uL Lymphocytes # (Auto) 1.49 1.2-3.4 K/uL Monocytes # (Auto) 2.07 0.11-0.59 K/uL Eosinophils # (Auto) 0.01 0-0.5 K/uL Basophils # (Auto) 0.03 0-0.2 K/uL RDW Standard Deviation 46.1 36.4-46.3 fL RDW Coefficient of Variation 16.2 11.5-14.5 % Immature Granulocyte % (Auto) 0.4 % Immature Granulocyte # (Auto) 0.09 0.00-0.02 K/uL Microcytosis PRESENT Prothrombin Time 10.6 9.0-12.0 SECONDS Prothromb Time International Ratio 1.0 0.9-1.1 Activated Partial Thromboplast Time 28.1 21.0-31.0 SECONDS Partial Thromboplastin Ratio 1.1 Sodium Level 141 136-145 mmol/L Potassium Level 3.8 3.5-5.1 mmol/L Chloride Level 111 98-107 mmol/L Carbon Dioxide Level 26 21-32 mmol/L Anion Gap 4.0 18.0 16-25 mmol/L Blood Urea Nitrogen 20 7-18 mg/dl Creatinine 1.10 0.60-1.20 mg/dl Est Creatinine Clear Calc Drug Dose 71.9 ml/min Estimated GFR () 62.8 Estimated GFR (Non- 54.1 BUN/Creatinine Ratio 17.9 10-20 Random Glucose 113 70-99 mg/dl Calcium Level 8.3 8.5-10.1 mg/dl Total Bilirubin 0.4 0.2-1 mg/dl Aspartate Amino Transf (AST/SGOT) 13 15-37 U/L Alanine Aminotransferase (ALT/SGPT) 20 12-78 U/L Alkaline Phosphatase 87 45-117 U/L Total Creatine Kinase 43 26-192 U/L Creatine Kinase MB < 0.5 0.5-3.6 ng/ml Creatine Kinase MB Ratio 0-3.0 Troponin I < 0.015 0-0.045 ng/ml Total Protein 6.4 6.4-8.2 gm/dl Albumin 2.9 3.4-5.0 gm/dl Globulin 3.5 2.5-4.0 gm/dl Albumin/Globulin Ratio 0.8 0.9-2 Lyme Disease IgG Antibody NEG NEG Lyme Disease IgM Antibody NEG NEG Bedside Lactic Acid Venous 2.13 0.90-1.70 mmol/L Bedside Hemoglobin 11.2 12.0-16.0 g/dl Bedside Hematocrit 33 37-47 % Bedside Sodium 141 135-144 mEq/L Bedside Potassium 3.6 3.3-5.0 mEq/L Bedside Chloride 104 101-112 mEq/L Bedside Total CO2 24 24-31 mEq/l Bedside Blood Urea Nitrogen 22 7-18 mg/dl Bedside Creatinine 1.0 0.6-1.3 mg/dl Bedside Glucose (other) 116 70-99 mg/dl Bedside Ionized Calcium ([place]) 1.21 1.12-1.32 mmol/l Test 09/22/16 20:08 Range/Units Microbiology Results 09/22/16 Blood Culture, Received Pending 09/22/16 Blood Culture, Received Pending Diagnostic Radiology HEAD CT IMPRESSION: No acute intracranial abnormality. CXR IMPRESSION: Right mid to lower lung zone airspace opacity suspicious for a pneumonia. Clinical and radiographic follow-up is recommended. CT A/P IMPRESSION: 1. Partially imaged bronchovascular distribution of groundglass and consolidative opacities within the right middle and right lower lobes suggests bronchopneumonia in the appropriate clinical setting. 2. No acute intra-abdominal or intrapelvic abnormality is identified. 3. Extensive sigmoid colonic diverticulosis without diverticulitis. 4. 4 mm echogenic focus along the nondependent fundal gallbladder lumen suggests polyp. This could be further evaluated with dedicated ultrasound. 5. Normal appendix. EKG Normal sinus rhythm Nonspecific T wave abnormality Abnormal ECG When compared with ECG of 04-MAY-2011 16:32, Nonspecific T wave abnormality, worse in Inferior leads Nonspecific T wave abnormality now evident in Anterolateral leads Impression Assessment and Plan 61 yo F with chills, fever, rigors, found to have a RLL pneumonia. RLL Pneumonia - Continue Vanc, Zosyn, Levaquin IV - Trend WBCC - CXR in AM Hyperlipidemia - Continue home statin Neuropathy - Continue gabapentin Anxiety - Continue Wellbutrin, Lexapro, and home dose Ambien Admit to Tele VTE: SCDs Code status: Full Attending Addendum: I have physically seen and examined this patient, have supervised the medical residents activities, and agree with the H&P as noted above with the following exceptions: NONE The patient is awake, well-developed and adequately nourished, alert and oriented 3, normocephalic and atraumatic, lying in bed and in no acute distress. HEENT--PERRL, EOMI, mucous membranes and oropharynx dry. Neck--supple, no JVD or bruits, thyroid normal, trachea midline, no adenopathy. Heart--normal S1 and S2, no extra beats, no murmurs, rubs or gallops. Lungs--decreased breath sounds right base worse than left base, no respiratory distress, no accessory muscle use. Abdomen--normal bowel sounds and soft, nontender and nondistended, no hernias or masses, no organomegaly. Extremities--no cyanosis, clubbing or edema. There are good distal pulses b/l. Dermatologic--normal skin turgor, normal color, warm and dry, no abnormal lymph nodes, no rash. Neurologic--cranial nerves II through XII grossly intact, motor and sensory examination normal. Rheumatologic--normal range of motion, nontender, muscles and joints. Psychiatric--normal affect. Assessment and Plan: 1. Right middle lobe and right lower lobe pneumonia--admitted to the telemetry unit for close oxygen monitoring. Vancomycin IV, Zosyn IV, and Levaquin IV. Duonebs every 4 hours while awake and every 2 hours when necessary. Every 4 hours while awake and every 2 hours when necessary. Serial chest x-rays Nasal cannula 2 L of oxygen, titrating to keep pulse ox greater than or equal to 92%. 2. Hyperlipidemia--continue atorvastatin 20 mg by mouth every morning. 3. Hypothyroidism--continue levothyroxine sodium 125 g by mouth every morning and liothyronine 12.5 g by mouth every morning. 4. Depression with anxiety--continue bupropion XL 150 mg by mouth daily and Lexapro 10 mg by mouth every morning. 5. GERD--continue ranitidine 3 mg by mouth at bedtime and changed extra Lantus from 60 mg by mouth every morning to pantoprazole 40 mg by mouth every morning. 6. Peripheral neuropathy--continue gabapentin 100 mg by mouth twice a day and 20 mg by mouth at bedtime. Level of Care Telemetry Advanced Directives Existing Advance Directive: No Existing Living Will: No Existing Power of Fleet Sales Manager: No Resuscitation Status FULL RESUSCITATION VTE Prophylaxis VTE Risk Assessment Done? Y/N: Yes Risk Level: Moderate Given or contraindicated: SCD's Social Service Consult None Apply Resident Tracking Resident Involvement: Resident Care Provided Care Provided: Adult Hospital Medicine
[2016-09-22] MEDS ORDERED: TRAMADOL HCL 50 MG TAB PO PRN (20:30)
[2016-09-22 20:55] LABS: URINE APPEARANCE CLEAR (CLEAR); URINE BILIRUBIN NEG (NEG); URINE COLOR YELLOW; URINE EPITHELIAL CELL AUTO 20-30 /lpf (0-5); URINE NITRITE NEG (NEG); URINE PH 6.5 (4.5-7.5); URINE SPECIFIC GRAVITY 1.033 (1.000-1.030); UROBILINOGEN NEG (NEG); ZZUR CULT IF INDIC CLEAN CATCH YES
[2016-09-22 20:56] LABS: MANUAL MICROSCOPIC REQUIRED? NO; REVIEW REQ? NO
[2016-09-22] MEDS ORDERED: CeleBREX 200 MG CAP PO SCH (21:00)
[2016-09-22] MEDS ORDERED: GABAPENTIN 300 MG CAP PO SCH (21:00)
[2016-09-22] MEDS ORDERED: PIPERACILL/TAZOBAC CONSULT ACTIVE PRN (21:00)
[2016-09-22] MEDS ORDERED: RANITIDINE HCL 150 MG TAB PO SCH (21:00)
[2016-09-22] MEDS ORDERED: LEVOFLOXACIN CONSULT ACTIVE PRN (21:00)
[2016-09-22] MEDS ORDERED: VANCOMYCIN CONSULT ACTIVE PRN (21:00)
--- NOTE | 2016-09-22 21:13 | Pharmacy Progress Note ---
Pharmacy Abx Initial Consult Date of Service Sep 22, 2016. Pharmacy Dosing Scope Date of Consult: 09/22/16 Consultation requested by: Dr. De Jesus Pharmacy is consulted to initiate Vanc + Zosyn + Levaquin IV dosing therapy, order appropriate labs and adjust drug dose/frequency. Subjective The patient is a 61 year old female admitted on . Objective Height (Feet): 5 Height (Inches): 9 Weight (Kilograms): 112.60 Vital Signs (Past 12Hrs) Vital Signs Past 12 Hours Date Time Temp Pulse Resp B/P (MAP) Pulse Ox O2 Delivery O2 Flow Rate FiO2 09/22/16 20:46 65 16 112/65 98 Room Air 09/22/16 18:49 97 16 94/57 99 Room Air 09/22/16 17:50 72 16 132/70 98 Room Air 09/22/16 16:59 98 Room Air 09/22/16 16:17 100 09/22/16 16:06 36.8 100 16 119/64 94 Room Air Lab Results (24Hrs) Laboratory Tests (24 Hours) Test 09/22/16 16:30 09/22/16 17:25 White Blood Count 25.40 K/uL (4.8-10.8) H Red Blood Count 4.50 M/uL (4.2-5.4) Hemoglobin 11.0 g/dL (12.0-16.0) L Hematocrit 35.2 % (37-47) L Mean Corpuscular Volume 78.2 fL (80-100) L Mean Corpuscular Hemoglobin 24.4 pg (25-34) L Mean Corpuscular Hemoglobin Concent 31.3 g/dl (32-36) L Platelet Count 415 K/uL (130-400) H Mean Platelet Volume 10.0 fL (7.4-10.4) Neutrophils (%) (Auto) 85.5 % Lymphocytes (%) (Auto) 5.9 % Monocytes (%) (Auto) 8.1 % Eosinophils (%) (Auto) 0.0 % Basophils (%) (Auto) 0.1 % Neutrophils # (Auto) 21.71 K/uL (1.4-6.5) H Lymphocytes # (Auto) 1.49 K/uL (1.2-3.4) Monocytes # (Auto) 2.07 K/uL (0.11-0.59) H Eosinophils # (Auto) 0.01 K/uL (0-0.5) Basophils # (Auto) 0.03 K/uL (0-0.2) Total Creatine Kinase 43 U/L (26-192) Micro Results Date/Time Source Procedure Growth Status 09/22/16 16:40 Blood Blood Culture Pending Received 09/22/16 16:30 Blood Blood Culture Pending Received 09/22/16 20:08 Urine , Clean Catch Urine Culture Pending Received Assessment & Plan Assessment 61 year old female admitted with headache, abdominal pain, CP, nausea. Started on empiric antibiotics for suspected CAP. * CXR -> right mid to lower lung zone airspace opacity suspicious for pneumonia * Leukocytosis, elevated lactic acid * Minimal info at time of consult, H&P not dictated at this time Plan Vanc + Zosyn + Levaquin for treatment of CAP Vancomycin IV * Loading dose: 1000 mg + 1750 mg (total 24.4 mg/kg) * Maintenance dose: 1500 mg IV (13.3 mg/kg) every 12 hours * Goal trough level for pnx : 15 to 20 mcg/mL * Ordered MRSA nasal swab to guide de-escalation of Vancomycin Piperacillin/tazobactam * 4.5 g bolus administered over 30 minutes, then 4.5 g IV extended infusion every 8 hours for CrCl greater than 20 mL/min * Aggressive dosing selected due to BMI 35 or more Levaquin * 750 mg IV every 24 hours - no renal adjustment required for CrCl > 50 ml/min Pharmacy will continue to follow and will adjust dose/frequency as necessary. Thank you.
[2016-09-22 21:55] VITALS: BP 110/70; PULSE 81; TEMP 36.8; O2SAT 95
[2016-09-22] MEDS ORDERED: ENOXAPARIN 40 MG/0.4 ML SYR SC SCH (22:00)
[2016-09-22] MEDS ORDERED: VANCOMYCIN INJ 1,750 MG in SODIUM CHLORIDE 0.9% 500ML 500 ML IV ONE (22:15)
[2016-09-22 22:23] VITALS: BP 110/70; PULSE 81; TEMP 36.8; O2SAT 96; Ht 175.3 cm; Wt 115.4 kg
[2016-09-22] MEDS: NSS + 20MEQ KCL 1000ML 1,000 ML IV SCH (22:33)
[2016-09-22] MEDS: PrednisoLONE ACET 1% OP SUSP 5 ML BTL OPR SCH (22:37)
[2016-09-23] VITALS (9 sets, daily range): BP systolic 98–137; BP diastolic 60–78; PULSE 80–93; TEMP 36.5–36.9; O2SAT 93–98
[2016-09-23] MEDS: PIPERACILL/TAZOBAC IV 4.5 GM in DEXTROSE 5% 100ML 100 ML IV SCH ×2 (00:29→08:24)
[2016-09-23] MEDS ORDERED: LIOTHYRONINE SODIUM 25 MCG TAB PO SCH (06:30)
[2016-09-23] MEDS ORDERED: LEVOTHYROXINE 125 MCG TAB PO SCH (06:30)
[2016-09-23 07:36] LABS: CREATININE 0.94 mg/dl (0.60-1.20)
--- NOTE | 2016-09-23 08:07 | Family Medicine Progress Note ---
Progress Note Date of Service Sep 23, 2016. Subjective Pt evaluation today including: conversation w/ patient, physical exam, chart review, lab review, review of studies Voiding: no voiding problems Pt resting comfortably in bed. Says her pain she felt in epigastrum and in between her shoulders yesterday is gone. She says she has no issues with breathing, and was able to sleep comfortably. Pt says she normally sleeps propped up because at night her GERD flares up and causes her to cough, so she finds it more comfortable. Respiratory: + cough, No sputum, No wheezing, No shortness of breath, No dyspnea at rest Cardiovascular: No chest pain, No orthopnea, No edema Abdomen: No pain, No nausea, No vomiting Objective Physical Exam General Appearance: WD/WN, no apparent distress Eyes: normal inspection, PERRL, EOMI Respiratory/Chest: chest non-tender, lungs clear, normal breath sounds, no respiratory distress Cardiovascular: regular rate, rhythm, no edema, no gallop, no JVD Abdomen: normal bowel sounds, non tender, soft Extremities: normal range of motion, normal inspection, no pedal edema Neurologic/Psychiatric: alert, normal mood/affect, oriented x 3 Skin: normal color, warm/dry, no rash Assessment and Plan 61F here for severe headaches, vomiting, and found to have RLL CAP CAP, RLL - CT shows: 1. Partially imaged bronchovascular distribution of groundglass and consolidative opacities within the right middle and right lower lobes suggests bronchopneumonia in the appropriate clinical setting. 2. No acute intra-abdominal or intrapelvic abnormality is identified. 3. Extensive sigmoid colonic diverticulosis without diverticulitis. 4. 4 mm echogenic focus along the nondependent fundal gallbladder lumen suggests polyp. This could be further evaluated with dedicated ultrasound. 5. Normal appendix. - DC Vanc, Zosyn due to MRSA neg and unlikely this was caused by anerobes. Cont Levaquin IV ECG Normal sinus rhythm Nonspecific T wave abnormality Abnormal ECG When compared with ECG of 04-MAY-2011 16:32, Nonspecific T wave abnormality, worse in Inferior leads Nonspecific T wave abnormality now evident in Anterolateral leads Hyperlipidemia - Continue home statin Neuropathy - Continue gabapentin Anxiety - Continue Wellbutrin, Lexapro, and home dose Ambien VTE: Lovenox, SCDs Code status: Full Dispo: Tele Continued [facility] stay due to: multiple IV medications needed Resident Tracking Resident Involvement: Resident Care Provided Care Provided: Adult Hospital Medicine
[2016-09-23] MEDS: ACETAMINOPHEN 325 MG TAB PO PRN (08:20)
[2016-09-23] MEDS: GABAPENTIN 100 MG CAP PO SCH ×2 (08:20→14:20)
[2016-09-23] MEDS: NSS + 20MEQ KCL 1000ML 1,000 ML IV SCH (08:22)
[2016-09-23] MEDS: PrednisoLONE ACET 1% OP SUSP 5 ML BTL OPR SCH ×2 (08:22→14:00)
--- NOTE | 2016-09-23 08:53 | Medical Student: [facility] ---
Med Student Progress Note Date of Service Sep 23, 2016. Subjective Pt evaluation today including: conversation w/ patient, physical exam, chart review, lab review, review of studies Voiding: no voiding problems Patient was examined sitting up in bed this morning. She reports feeling much better than yesterday. She was able to sleep through the night and her appetite has returned. She no longer has fever or chills. Also denies headache, dizziness , chest pain, palpitations, shortness of breath, nausea, vomiting, abdominal pain, dysuria, numbness/tingling, or calf pain. Review of Systems Constitutional: No fever, No chills, No sweats Eyes: No worsening of vision, No diplopia ENT: No sore throat, No trouble swallowing Respiratory: No cough, No wheezing, No shortness of breath Cardiac: No chest pain, No palpitations Abdomen: No pain, No nausea, No vomiting, No diarrhea Musculoskeletal: No muscle pain, No calf pain Female : No dysuria, No urinary frequency Neurologic: No paralysis, No numbness/tingling Objective Vital Signs Date Time Temp Pulse Resp B/P (MAP) Pulse Ox O2 Delivery O2 Flow Rate FiO2 09/23/16 07:49 36.5 82 16 119/60 (79) 94 Room Air 09/23/16 04:00 36.9 83 20 98/61 (73) 94 Room Air 09/23/16 04:00 Room Air 09/23/16 00:21 36.7 81 20 137/78 (97) 98 Room Air 09/23/16 00:00 Room Air 09/22/16 22:23 36.8 81 18 110/70 96 Room Air 09/22/16 21:55 36.8 81 18 110/70 (83) 95 Room Air 09/22/16 20:46 65 16 112/65 98 Room Air 09/22/16 18:49 97 16 94/57 99 Room Air 09/22/16 17:50 72 16 132/70 98 Room Air 09/22/16 16:59 98 Room Air 09/22/16 16:17 100 09/22/16 16:06 36.8 100 16 119/64 94 Room Air Physical Exam General Appearance: WD/WN, no apparent distress Eyes: bilateral eyes normal inspection, bilateral eyes PERRL, bilateral eyes EOMI ENT: normal ENT inspection, hearing grossly normal, pharynx normal Neck: supple, no adenopathy, no carotid bruits Respiratory/Chest: no respiratory distress, no accessory muscle use, + crackles (right lower lobe) Cardiovascular: regular rate, rhythm, no gallop, no murmur Abdomen: normal bowel sounds, non tender, soft Extremities: no calf tenderness, normal capillary refill Neurologic/Psychiatric: no motor/sensory deficits, alert, oriented x 3 Skin: normal color, warm/dry, no rash Lymphatic: no adenopathy Laboratory Results Last 24 Hours Test 09/22/16 16:30 09/22/16 17:25 09/22/16 17:39 09/22/16 17:47 White Blood Count 25.40 K/uL Red Blood Count 4.50 M/uL Hemoglobin 11.0 g/dL Hematocrit 35.2 % Mean Corpuscular Volume 78.2 fL Mean Corpuscular Hemoglobin 24.4 pg Mean Corpuscular Hemoglobin Concent 31.3 g/dl Platelet Count 415 K/uL Mean Platelet Volume 10.0 fL Neutrophils (%) (Auto) 85.5 % Lymphocytes (%) (Auto) 5.9 % Monocytes (%) (Auto) 8.1 % Eosinophils (%) (Auto) 0.0 % Basophils (%) (Auto) 0.1 % Neutrophils # (Auto) 21.71 K/uL Lymphocytes # (Auto) 1.49 K/uL Monocytes # (Auto) 2.07 K/uL Eosinophils # (Auto) 0.01 K/uL Basophils # (Auto) 0.03 K/uL RDW Standard Deviation 46.1 fL RDW Coefficient of Variation 16.2 % Immature Granulocyte % (Auto) 0.4 % Immature Granulocyte # (Auto) 0.09 K/uL Microcytosis PRESENT Prothrombin Time 10.6 SECONDS Prothromb Time International Ratio 1.0 Activated Partial Thromboplast Time 28.1 SECONDS Partial Thromboplastin Ratio 1.1 Sodium Level 141 mmol/L Potassium Level 3.8 mmol/L Chloride Level 111 mmol/L Carbon Dioxide Level 26 mmol/L Anion Gap 4.0 mmol/L 18.0 mmol/L Blood Urea Nitrogen 20 mg/dl Creatinine 1.10 mg/dl Est Creatinine Clear Calc Drug Dose 71.9 ml/min Estimated GFR () 62.8 Estimated GFR (Non- 54.1 BUN/Creatinine Ratio 17.9 Random Glucose 113 mg/dl Calcium Level 8.3 mg/dl Total Bilirubin 0.4 mg/dl Aspartate Amino Transf (AST/SGOT) 13 U/L Alanine Aminotransferase (ALT/SGPT) 20 U/L Alkaline Phosphatase 87 U/L Total Creatine Kinase 43 U/L Creatine Kinase MB < 0.5 ng/ml Creatine Kinase MB Ratio Troponin I < 0.015 ng/ml Total Protein 6.4 gm/dl Albumin 2.9 gm/dl Globulin 3.5 gm/dl Albumin/Globulin Ratio 0.8 Lyme Disease IgG Antibody NEG Lyme Disease IgM Antibody NEG Bedside Lactic Acid Venous 2.13 mmol/L Bedside Hemoglobin 11.2 g/dl Bedside Hematocrit 33 % Bedside Sodium 141 mEq/L Bedside Potassium 3.6 mEq/L Bedside Chloride 104 mEq/L Bedside Total CO2 24 mEq/l Bedside Blood Urea Nitrogen 22 mg/dl Bedside Creatinine 1.0 mg/dl Bedside Glucose (other) 116 mg/dl Bedside Ionized Calcium ([place]) 1.21 mmol/l Test 09/22/16 20:08 09/23/16 06:03 Urine Color YELLOW Urine Appearance CLEAR Urine pH 6.5 Urine Specific [place] 1.033 Urine Protein NEG Urine Glucose (UA) NEG Urine Ketones NEG Urine Occult Blood NEG Urine Nitrite NEG Urine Bilirubin NEG Urine Urobilinogen NEG Urine Leukocyte Esterase NEG Urine WBC (Auto) 1-5 /hpf Urine RBC (Auto) 0-4 /hpf Urine Hyaline Casts (Auto) 1-5 /lpf Urine Epithelial Cells (Auto) 20-30 /lpf Urine Bacteria (Auto) 1+ Creatinine 0.94 mg/dl Est Creatinine Clear Calc Drug Dose 85.2 ml/min Estimated GFR () 75.9 Estimated GFR (Non- 65.5 Assessment and Plan Assessment and Plan: This is a 61yo female with a history of hiatal hernia and GERD who presented to the ED with pneumonia meeting SIRS criteria (HR>90, WBC 25). She is feeling better today after broad spectrum IV antibiotic therapy. Plan: 1. Pneumonia RML and RLL, met SIRS criteria (HR>90, WBC 25) -patient has done well on IV vancomycin/zosyn/levaquin -transition patient to IV levaquin 750mg q24h for CAP coverage with plan to d/c on PO levaquin -CXR shows right mid- and lower-lobe pna -blood cultures pending -UA negative -Lyme serologies negative -E. chaffeensis pending -MRSA negative 2. GERD -protonix 40mg PO qAM -Maalox 30ml IV -ranitidine 50mg IV 3. Hypothyroidism -levothyroxine 125mcg PO daily -liothyronine 25mcg 4. Hyperlipidemia -atorvastatin 20mg qAM 5. Peripheral neuropathy -gabapentin 100mg BID + 300mg QHS -PRN tramadol 50mg PO q8h prn pain 6. Osteoarthritis -celecoxib 50mg PO QHS 7. Depression -buproprion 150mg PO daily -escitalopram 10mg qAM 8. DVT prophylaxis -lovenox 40mg s.c. daily -ambulate as tolerated 9. Disposition -Location: home -Date: TBD
[2016-09-23] MEDS ORDERED: PANTOprazole SOD 40 MG TAB PO SCH (09:00)
[2016-09-23] MEDS ORDERED: ESCITALOPRAM OXALATE 10 MG TAB PO SCH (09:00)
[2016-09-23] MEDS ORDERED: BuPROPion XL 150 MG TABCR PO SCH (09:00)
[2016-09-23] MEDS ORDERED: ATORVASTATIN 20 MG TAB PO SCH (09:00)
[2016-09-23 09:55] LABS: BASO % 0.3 %; BASO ABS # 0.05 K/uL (0-0.2); EOS % 0.8 %; HEMATOCRIT 28.3 % (37-47); IG% 0.3 %; LYMPH % 14.6 %; LYMPH ABS # 2.79 K/uL (1.2-3.4); MEAN CELL VOLUME 79.5 fL (80-100); MEAN CORPUSCULAR HGB CONC 31.4 g/dl (32-36); MEAN PLATELET VOLUME 9.9 fL (7.4-10.4); MONO % 7.9 %; NEUT % 76.1 %; PLATELET COUNT 351 K/uL (130-400); RED BLOOD COUNT 3.56 M/uL (4.2-5.4); WHITE BLOOD COUNT 19.12 K/uL (4.8-10.8)
[2016-09-23] MEDS ORDERED: VANCOMYCIN INJ 1,500 MG in SODIUM CHLORIDE 0.9% 500ML 500 ML IV SCH (10:00)
[2016-09-23 10:19] LABS: COMPLETE YES; MICROCYTOSIS PRESENT; TOXIC GRANULATION 1+
--- NOTE | 2016-09-23 11:21 | DIAGNOSTIC IMAGING REPORT ---
CHEST 2 VIEWS ROUTINE CLINICAL HISTORY: PNEUMONIA, P/A and lateral COMPARISON STUDY: Chest radiograph September 22, 2016. FINDINGS: Lung volumes are normal. There is no pneumothorax or pleural effusion. A hiatal hernia is noted. Mild cardiomegaly is unchanged. There is no evidence of pulmonary edema. Multifocal airspace opacities within the right lung have slightly progressed. There is no cavitation. IMPRESSION: Slight progression of multifocal right lung airspace opacities suggestive of pneumonia. Radiographic follow up to ensure resolution is recommended. Electronically signed by: Andrea Villatoro M.D. 09/23/2016 11:19 AM Dictated Date/Time: 09/23/2016 11:18 AM
[2016-09-23] MEDS ORDERED: ALUMINUM/MAGNESIUM SUSP 30 ML UDC PO STA (14:15)
[2016-09-23] MEDS ORDERED: RANITIDINE IV 50 MG in DEXTROSE 5% 100ML 100 ML IV SCH (14:30)
[2016-09-23] MEDS ORDERED: LVQ750 PO (17:56)
--- NOTE | 2016-09-23 17:59 | Discharge Instructions ---
Discharge Instructions Date of Service Sep 23, 2016. Admission Reason for Admission: Pneumonia Discharge Discharge Diagnosis / Problem: Pneumonia Discharge Goals Goal(s): Decrease discomfort, Improve function, Improve disease control Activity Recommendations Activity Limitations: as noted below Lifting Limitations: no more than 10 pounds, gradually increase as tolerated Exercise/Sports Limitations: as tolerated May Resume Sexual Activity: when tolerated Shower/Bathe: no limitations . Instructions / Follow-Up Instructions / Follow-Up You were admitted for feeling unwell and were found to have pneumonia on imaging. Your pneumonia was likely due to a bacterial infection of your lung. We gave you fluids as well as antibiotics intravenously. You are to take the remainder of your antibiotic (Levaquin) in tablet form, for 10 days after discharge. Make sure to take all your medicine until completed. Every medication comes with its benefits and its risks. The benefit of your medication is that it will get rid of the bacteria causing your lung infection. The risk of Levaquin is its side effects, one of which is tendinitis. While on this medication, we recommend that you not do any heavy lifting or ultra sports of any kind, to give your body the best chance of healing without problems. We recommend that you hydrate regularly, which daily means about 60 ounces of water. Make sure to rest and return to your previous activity as you feel you can tolerate. We recommend that you follow up with your primary care physician in 1-2 weeks after discharge. Current Hospital Diet Patient's current hospital diet: AHA Diet (Heart Healthy) Discharge Diet Recommended Diet: AHA Diet (Heart Healthy) Fluid Restriction: None Procedures Procedures Performed: Chest X ray Abdominal CT Pending Studies Studies pending at discharge: no Laboratory Results Hemoglobin A1c Test 07/06/16 12:34 Range/Units Estimated Average Glucose 123 mg/dl Hemoglobin A1c 5.9 H 4.5-5.6 % Lipid Panel Test 07/06/16 12:34 Range/Units Triglycerides Level 204 H 0-150 mg/dl Cholesterol Level 165 0-200 mg/dl HDL Cholesterol 46 mg/dl Cholesterol/HDL Ratio 3.6 LDL Cholesterol, Calculated 78 mg/dl Medical Emergencies . Who to Call and When: Medical Emergencies: If at any time you feel your situation is an emergency, please call 911 immediately. . Non-Emergent Contact Non-Emergency issues call your: Primary Care Provider Call Non-Emergent contact if: you have a fever, you have any medication questions . . "Provider Documentation" section prepared by Pina Lopez. . VTE Core Measure Inpt VTE Proph given/why not?: SCD's Resident Tracking Resident Involvement: Resident Care Provided Care Provided: Adult Hospital Medicine
[2016-09-23] MEDS ORDERED: LEVOFLOXACIN / D5W 750 MG in PREMIXED IN D5W 150 ML IV SCH (18:00)
[2016-09-23] MEDS ORDERED: LEVOFLOXACIN 750 MG TAB PO SCH (18:00)
--- NOTE | 2016-09-23 18:14 | Discharge Summary ---
Discharge Summary Date of Service Sep 23, 2016. (Pina Lopez M.D.) Discharge Summary Admission Date: Sep 22, 2016 at 20:08 Discharge Date: Sep 23, 2016 Discharge Disposition: Home Principal Diagnosis: Community Acquired Pneumonia Immunizations: Have You Had Influenza Vaccine: Unknown History of Tetanus Vaccine?: Unknown History of Pneumococcal: Unknown History of Hepatitis B Vaccine: Unknown Procedures: CXR CT abdomen (Pina Lopez M.D.) Medication Reconciliation New Medications: Levofloxacin (Levofloxacin) 750 Mg Tab 750 MG PO DAILY for 10 Days, #10 TAB 0 Refills Continued Medications: Atorvastatin (Lipitor) 20 Mg Tab 20 MG PO QAM B-Complex W/Biotin & Folic Aci (Super B-Complex) 1 Cap Cap 1 CAP PO DAILY Bupropion Hcl (Bupropion Hcl Xl) 150 Mg Tab 150 MG PO DAILY for 30 Days, #30 TAB Celecoxib (CeleBREX) 200 Mg Cap 200 MG PO HS Cholecalciferol (Vitamin D3) 5,000 Unit Tab 1 TAB PO QPM Dexlansoprazole (Dexilant) 60 Mg Cap 60 MG PO QAM Escitalopram (Lexapro) 10 Mg Tab 10 MG PO QAM Gabapentin (Neurontin) 100 Mg Cap 100 MG PO BID Gabapentin (Neurontin) 100 Mg Cap 3 TABS PO HS Levothyroxine Sodium (Synthroid) 125 Mcg Tab 125 MCG PO QAM Liothyronine Sodium (Liothyronine Sodium) 50 Mcg Tab 0.5 TAB PO QAM Loperamide Hcl (Imodium) 2 Mg Cap 2 MG PO UD PRN for Diarrhea Melatonin (Melatonin Maximum Strengt) 5 Mg Tab 1 TAB PO HS Prednisolone Acetate (Ophth) (Pred Forte 1% Oph) 1 % Amy 1 DROPS OPR TID Ranitidine (Zantac) 300 Mg Tab 300 MG PO HS, TAB Tramadol (Ultram) 50 Mg Tab 1-2 TABS PO Q8H PRN for Pain Zolpidem Tartrate (Ambien) 10 Mg Tab 10 MG PO HS PRN for Insomnia, TAB Discharge Exam Review of Systems: Constitutional: No chills, No weakness Respiratory: No cough, No sputum, No wheezing, No shortness of breath Cardiovascular: No chest pain, No orthopnea, No edema Abdomen: + nausea, No pain, No vomiting, No diarrhea, No constipation Physical Exam: General Appearance: WD/WN, no apparent distress, + obese Eyes: normal inspection, PERRL, EOMI Respiratory/Chest: chest non-tender, lungs clear, normal breath sounds, no respiratory distress, no accessory muscle use Cardiovascular: regular rate, rhythm, no edema, no JVD, normal peripheral pulses Abdomen / GI: normal bowel sounds, soft, + pertinent finding (mild tenderness at epigastrium) Extremities: normal inspection, no pedal edema, normal range of motion Neurologic/Psychiatric: alert, normal mood/affect, oriented x 3 Skin: normal color, warm/dry, no rash (Pina Lopez M.D.) Hospital Course 61F here for severe headaches, vomiting, and found to have RLL CAP with SIRS. CAP, RLL - CT shows: 1. Partially imaged bronchovascular distribution of groundglass and consolidative opacities within the right middle and right lower lobes suggests bronchopneumonia in the appropriate clinical setting. 2. No acute intra-abdominal or intrapelvic abnormality is identified. 3. Extensive sigmoid colonic diverticulosis without diverticulitis. 4. 4 mm echogenic focus along the nondependent fundal gallbladder lumen suggests polyp. This could be further evaluated with dedicated ultrasound. - DC Vanc, Zosyn due to MRSA neg and unlikely this was caused by anerobes. - Continued Levaquin IV. - Sent pt home with PO Levaquin x10day course and instructions. Hyperlipidemia - Continued home statin Neuropathy - Continued gabapentin Anxiety - Continue Wellbutrin, Lexapro, and home dose Ambien VTE: Lovenox, SCDs Code status: Full Total Time Spent: Greater than 30 minutes This includes examination of the patient, discharge planning, medication reconciliation, and communication with other providers. (Pina Lopez M.D.) Resident Physician Supervision Note: I interviewed and examined the patient. Discussed with Dr. Lopez and agree with findings and plan as documented in the note. Any exceptions or clarifications are listed here: None Documented By: Genaro Reeves feeling better still some nausea and epigastric pain but notes that's been going on since long before discharge is manageable and is actively following w PCP for this. taking dexilant and then prn zantac hs. occassional tums. again following actively w PCP. all other ROS otherwise negative except for as above vitals noted nad breathing unlabored epigastric ttp no guarding no rebound not exquisitely tender CAP w sepsis - levaquin abdominal pain - likely hiatal hernia , she feels safe/stable for home w this and outpt f/u. ensured that she tolerated PO levaquin first. did well. safe/ stable for home (Genaro Reeves D.O.) Discharge Instructions Please refer to the electronic Patient Visit Report (Discharge Instructions) for additional information. (Pina Lopez M.D.) Resident Tracking Resident Involvement: Resident Care Provided Care Provided: Adult Hospital Medicine (Pina Lopez M.D.)
[2016-09-24] MEDS ORDERED: VANCOMYCIN TROUGH ONE (21:30)
[2016-10-02 23:38] LABS: EHRLICHIA CHAFF IGG AB <1:64 (<1:64); EHRLICHIA CHAFF IGM AB <1:20 (<1:20)
[2016-11-01] MEDS ORDERED: GABA-112 PO (13:08)
== END 2016-09-23 19:34 | disposition home or self-care (01) | DRG 871 ==
LOC: EDBD 15:49 → C.EDA 15:50 → C.MED 20:08 → ENRESERV 20:19
PROVIDERS: ADMIT Hospitalist; ATTEND Family Medicine
DX: A41.9 Sepsis, unspecified organism (principal); J18.9 Pneumonia, unspecified organism; K44.9 Diaphragmatic hernia without obstruction or gangrene; R51 Headache; E03.9 Hypothyroidism, unspecified; K21.9 Gastro-esophageal reflux disease without esophagitis; E78.5 Hyperlipidemia, unspecified; G62.9 Polyneuropathy, unspecified; F41.8 Other specified anxiety disorders; E66.9 Obesity, unspecified; Z68.37 Body mass index [BMI] 37.0-37.9, adult; Z87.891 Personal history of nicotine dependence; Z79.1 Long term (current) use of non-steroidal anti-inflammatories (NSAID); Z79.891 Long term (current) use of opiate analgesic; Z79.899 Other long term (current) drug therapy

== ENCOUNTER → 2016-10-15 | Outpatient (CLI) | payer BC ==
[~2016-10-15] MED LIST changes: +B-CO1CAP5 PO; +BUPR150T5 PO; +DEXL60CA4 PO; +LVQ750 PO; -NF1317 PO; +RANI300T2 PO
--- NOTE | 2016-10-15 09:30 | DIAGNOSTIC IMAGING REPORT ---
GALLBLADDER-ABD LIMITED CLINICAL HISTORY: 61 years-old Female presenting with abdominal pain. TECHNIQUE: Real-time grayscale and limited color Doppler ultrasound imaging of the abdomen limited to the right upper quadrant was performed. COMPARISON: 07/19/2013. FINDINGS: Pancreas: Visualized portions of the pancreatic head and body normal. Liver: Normal echogenicity and echotexture. The liver measures 17.7 cm in maximal sagittal dimension. No sonographic evidence of hepatic mass. Main portal vein patent with normal directional flow. Biliary: No intrahepatic biliary ductal dilatation. Common bile duct measures up to 5 mm in diameter. Gallbladder: Echogenic 6 mm focus along the anterior gallbladder wall, in an antidependent location. No gallbladder wall thickening or pericholecystic inflammatory change. No gallbladder wall distention. Right kidney: Normal in appearance and size, measuring 12.1 cm. No hydronephrosis. Ascites: None. IMPRESSION: 1. 6 mm echogenic focus along the gallbladder wall may represent a small cholesterol polyp. No cholelithiasis. 2. No convincing evidence of acute right upper quadrant pathology. 3. Liver top normal in size. Electronically signed by: Gerald Cano M.D. 10/15/2016 9:28 AM Dictated Date/Time: 10/15/2016 9:26 AM
== END | disposition home or self-care (01) ==
LOC: C.ULTR 08:58
PROVIDERS: ATTEND Nurse Practitioner Adult Health
DX: R10.9 Unspecified abdominal pain (principal)

== ENCOUNTER → 2016-10-29 | Outpatient (CLI) | payer BC ==
--- NOTE | 2016-10-29 11:25 | DIAGNOSTIC IMAGING REPORT ---
GI SERIES W/AIR ROUTINE CLINICAL HISTORY: Epigastric abdominal pain. Hernia. COMPARISON STUDY: Abdomen and pelvis CT 09/22/2016. FLUOROSCOPY TIME: 2.1 minutes. 26 images. FINDINGS: The patient swallowed barium without difficulty. The esophagus is normal in course, caliber, and motility. Moderate hiatus hernia. No gastric ulcerations. The duodenal bulb and duodenal C sweep are within normal limits. No evidence for obstruction. No evidence for gastroesophageal reflux during the study. IMPRESSION: 1. Moderate hiatus hernia. 2. No evidence for gastroesophageal reflux. Electronically signed by: [place] M.D. 10/29/2016 11:24 AM Dictated Date/Time: 10/29/2016 11:21 AM
== END | disposition home or self-care (01) ==
LOC: C.RAD 10:38
PROVIDERS: ATTEND Physician Assistant
DX: K21.9 Gastro-esophageal reflux disease without esophagitis (principal); K44.9 Diaphragmatic hernia without obstruction or gangrene; R10.13 Epigastric pain

== ENCOUNTER → 2016-11-15 | Day surgery (SDC) | payer BC ==
[2016-11-01 13:09] VITALS: Ht 165.1 cm; Wt 111.8 kg
[~2016-11-15] VITALS: Ht 165.1 cm; Wt 111.8 kg
[~2016-11-15] MED LIST changes: +LIDOCAINE HCL 2% 2 ML VIAL (20MG/ML) ONE; -LVQ750 PO; +MIDAZOLAM HCL 1 MG/ML 2ML VIAL ONE; -PRED1SUS3 OPR; +PROPOFOL IV EMULSION 10 MG/ML 20 ML VIAL IV ONE
--- NOTE | 2016-11-15 15:34 | Endo History and Physical ---
History & Physical Date of Service: Nov 15, 2016. Chief Complaint: Abd pain Referring Physician: Jade Devi History of Present Illness 61 yo CF who presents for EGD secondary to Abdominal pain. Past Medical History Arthritis, Gastrointestinal Disorder, Thyroid Disease, Depression Past Surgical History Hx Cardiac Surgery: No Hx Internal Defibrillator: No Hx Pacemaker: No Hx Abdominal Surgery: Yes (TUBAL LIGATION, PARTIAL HYSTER) Hx of Implantable Prosthesis: No Hx Post-Op Nausea and Vomiting: No Hx Cancer Surgery: No Hx Thoracic Surgery: No Hx Orthopedic: Yes (LT ANKLE SURGERY S/P BREAK) Hx Urinary Tract Surgery: No Family History None Social History Smoking Status: Former Smoker Hx Substance Use: No Hx Alcohol Use: Yes (OCCASIONAL) Allergies Coded Allergies: No Known Allergies (Unverified , 11/01/16) Current Medications Reported Home Medications Medications Dose Route/Sig Max Daily Dose Days Date Category Neurontin (Gabapentin) 100 Mg Cap 100 Mg PO BID 11/01/16 Reported Zantac (Ranitidine HCl) 300 Mg Tab 300 Mg PO QPM 09/22/16 Reported Bupropion Hcl Xl (Bupropion Hcl) 150 Mg Tab 150 Mg PO Q3D 09/22/16 Reported Super B-Complex (B-Complex W/Biotin & Folic Aci) 1 Cap Cap 1 Cap PO DAILY 09/22/16 Reported Dexilant (Dexlansoprazole) 60 Mg Cap 60 Mg PO QAM 09/22/16 Reported Lexapro (Escitalopram Oxalate) 10 Mg Tab 10 Mg PO QAM 03/30/16 Reported Melatonin Maximum Strengt (Melatonin) 5 Mg Tab 1 Tab PO HS 03/30/16 Reported Vitamin D3 (Cholecalciferol) 5,000 Unit Tab 1 Tab PO QPM 03/30/16 Reported Lipitor (Atorvastatin Calcium) 20 Mg Tab 20 Mg PO QAM 03/30/16 Reported Liothyronine Sodium 50 Mcg Tab 0.5 Tab PO QAM 03/30/16 Reported Neurontin (Gabapentin) 100 Mg Cap 3 Tabs PO HS 03/30/16 Reported Ultram (Tramadol HCl) 50 Mg Tab 1-2 Tabs PO Q8H PRN 09/29/15 Reported CeleBREX (Celecoxib) 200 Mg Cap 200 Mg PO HS 06/26/15 Reported Imodium (Loperamide HCl) 2 Mg Cap 2 Mg PO UD PRN 06/26/15 Reported Ambien (Zolpidem Tartrate) 10 Mg Tab 10 Mg PO HS 05/10/13 Reported Synthroid (Levothyroxine Sodium) 125 Mcg Tab 125 Mcg PO QAM 05/10/13 Reported Vital Signs Weight (Kilograms): 111.82 Height (Feet): 5 Height (Inches): 5 Date Time Temp Pulse Resp B/P (MAP) Pulse Ox O2 Delivery O2 Flow Rate FiO2 11/15/16 15:05 36.6 76 18 154/87 (109) 97 Room Air Physical Exam General Appearance: WD/WN, no apparent distress Respiratory/Chest: Auscultation: breath sounds normal Cardiovascular: Heart Auscultation: RRR Abdomen: Bowel Sounds: normal Inspection & Palpation: soft, non-distended, no tenderness, guarding & rebound Assessment and Plan Assessment: 61 yo CF who presents for EGD secondary to Abdominal pain. Plan: Proceed with EGD.
--- NOTE | 2016-11-15 16:00 | GI REPORT ---
Procedure Date: 11/15/2016 3:32 PM Procedure: Upper GI endoscopy Indications: Epigastric abdominal pain Medicines: Monitored Anesthesia Care Complications: No immediate complications. Estimated Blood Loss: Estimated blood loss: none. Procedure: Pre-Anesthesia Assessment: - Prior to the procedure, a History and Physical was performed, and patient medications and allergies were reviewed. The patient's tolerance of previous anesthesia was also reviewed. The risks and benefits of the procedure and the sedation options and risks were discussed with the patient. All questions were answered, and informed consent was obtained. Prior Anticoagulants: The patient has taken no previous anticoagulant or antiplatelet agents. ASA Grade Assessment: II - A patient with mild systemic disease. After reviewing the risks and benefits, the patient was deemed in satisfactory condition to undergo the procedure. After obtaining informed consent, the endoscope was passed under direct vision. Throughout the procedure, the patient's blood pressure, pulse, and oxygen saturations were monitored continuously. The scope was introduced through the mouth, and advanced to the second part of duodenum. The upper GI endoscopy was accomplished without difficulty. The patient tolerated the procedure well. Findings: The examined esophagus was normal. A medium-sized hiatus hernia was present. Localized mild inflammation characterized by erythema was found in the gastric antrum. Biopsies were taken with a cold forceps for histology. The examined duodenum was normal. Impression: - Normal esophagus. - Medium-sized hiatus hernia. - Gastritis. Biopsied. - Normal examined duodenum. Recommendation: - Resume previous diet. - Continue present medications. - Await pathology results. - Return to primary care physician as previously scheduled. Rob Todd, 11/15/2016 3:59:58 PM This report has been signed electronically. Note Initiated On: 11/15/2016 3:32 PM I attest to the content of the Intraoperative Record and orders documented therein, exceptions below
--- NOTE | 2016-11-15 16:05 | Discharge Instructions ---
Endoscopy Patient Instructions Date / Procedure(s) Performed Nov 15, 2016. EGD Allergy Information Coded Allergies: No Known Allergies (Unverified , 11/01/16) Discharge Date / Findings Nov 15, 2016. Gastritis s/p biopsies Hiatal hernia Medication Instructions OK to resume all medications today as prescribed Reported Home Medications Medications Dose Route/Sig Max Daily Dose Days Date Category Neurontin (Gabapentin) 100 Mg Cap 100 Mg PO BID 11/01/16 Reported Zantac (Ranitidine HCl) 300 Mg Tab 300 Mg PO QPM 09/22/16 Reported Bupropion Hcl Xl (Bupropion Hcl) 150 Mg Tab 150 Mg PO Q3D 09/22/16 Reported Super B-Complex (B-Complex W/Biotin & Folic Aci) 1 Cap Cap 1 Cap PO DAILY 09/22/16 Reported Dexilant (Dexlansoprazole) 60 Mg Cap 60 Mg PO QAM 09/22/16 Reported Lexapro (Escitalopram Oxalate) 10 Mg Tab 10 Mg PO QAM 03/30/16 Reported Melatonin Maximum Strengt (Melatonin) 5 Mg Tab 1 Tab PO HS 03/30/16 Reported Vitamin D3 (Cholecalciferol) 5,000 Unit Tab 1 Tab PO QPM 03/30/16 Reported Lipitor (Atorvastatin Calcium) 20 Mg Tab 20 Mg PO QAM 03/30/16 Reported Liothyronine Sodium 50 Mcg Tab 0.5 Tab PO QAM 03/30/16 Reported Neurontin (Gabapentin) 100 Mg Cap 3 Tabs PO HS 03/30/16 Reported Ultram (Tramadol HCl) 50 Mg Tab 1-2 Tabs PO Q8H PRN 09/29/15 Reported CeleBREX (Celecoxib) 200 Mg Cap 200 Mg PO HS 06/26/15 Reported Imodium (Loperamide HCl) 2 Mg Cap 2 Mg PO UD PRN 06/26/15 Reported Ambien (Zolpidem Tartrate) 10 Mg Tab 10 Mg PO HS 05/10/13 Reported Synthroid (Levothyroxine Sodium) 125 Mcg Tab 125 Mcg PO QAM 05/10/13 Reported Provider Instructions Activity Restrictions - No exercising or heavy lifting for 24 hours. - Do not drink alcohol the day of the procedure. - Do not drive a car or operate machinery until the day after the procedure. - Do not make any important decisions or sign important papers in 24 hours after the procedure. Following Day: - Return to full activity which may include returning to work/school. Diet Start your diet with liquids and light foods (jello, soup, juice, toast). Then eat your usual diet if not nauseated. Treatment For Common After Affects For mild abdominal pain, bloating, or excessive gas: - Rest - Eat lightly - Lie on right side Follow-Up Information Follow-up with Jade Devi as scheduled Anesthesia Information What You Should Know You have had a procedure that required some medicine to reduce anxiety and discomfort. This treatment is called moderate sedation. After receiving the treatment, you may be sleepy, but you will be able to breathe on your own. The effects of the treatment may last for several hours. Follow these instructions along with Activity/Diet recommendations noted above: * Do NOT do anything where dizziness or clumsiness would be dangerous. * Rest quietly at home today, then you can be up and about tomorrow. * Have a responsible person stay with you the rest of today. * You may have had an I.V. today. If so, you may take the dressing off later today. Recommendations Call your doctor if: * Trouble breathing * Continuous vomiting for more than 24 hours * Temperature above 101 degrees * Severe abdominal pain or bloating * Pain not relieved by pain medicine ordered * There is increased drainage or redness from any incision * A large amount of rectal bleeding greater than 2-3 tablespoons. (If you had a polyp/s removed or have hemorrhoids, a small amount of blood - from the rectum is to be expected.) * You have any unanswered questions or concerns. IN THE EVENT OF A SERIOUS EMERGENCY, GO TO THE NEAREST EMERGENCY ROOM Your discharge instructions were prepared by provider Rob Todd. Patient Instructions Signature Page Kelsie Grey Patient (or Guardian) Signature/Date: I have read and understand the instructions given to me by my caregivers. Caregiver/RN/Doctor Signature/Date: The above-named patient and/or guardian has received patient instructions on this date. + Original Patient Signature Page (only) stays with chart. Please make copy for patient.
--- NOTE | 2016-11-15 16:14 | Anesthesiology Progress Note ---
Anesthesia Post Op Note Date & Time Nov 15, 2016 at 16:14 Vital Signs Vital Signs Past 12 Hours Date Time Temp Pulse Resp B/P (MAP) Pulse Ox O2 Delivery O2 Flow Rate FiO2 11/15/16 16:03 88 16 124/66 (85) 97 Room Air 11/15/16 15:05 36.6 76 18 154/87 (109) 97 Room Air Notes Mental Status: alert / awake / arousable, participated in evaluation Pt Amnestic to Procedure: Yes Nausea / Vomiting: adequately controlled Pain: adequately controlled Airway Patency, RR, SpO2: stable & adequate BP & HR: stable & adequate Hydration State: stable & adequate Anesthetic Complications: no major complications apparent
[2016-11-15 16:30] VITALS: BP 167/103; PULSE 74; O2SAT 97
== END | disposition home or self-care (01) ==
LOC: C.GI 14:35
PROVIDERS: ATTEND Internal Medicine
DX: K29.50 Unspecified chronic gastritis without bleeding (principal); K44.9 Diaphragmatic hernia without obstruction or gangrene; E07.9 Disorder of thyroid, unspecified; F32.9 Major depressive disorder, single episode, unspecified; Z87.891 Personal history of nicotine dependence; Z79.899 Other long term (current) drug therapy

== ENCOUNTER → 2017-08-31 | Outpatient (CLI) | payer BC ==
[~2017-08-31] MED LIST changes: -LIDOCAINE HCL 2% 2 ML VIAL (20MG/ML) ONE; -MIDAZOLAM HCL 1 MG/ML 2ML VIAL ONE; -PROPOFOL IV EMULSION 10 MG/ML 20 ML VIAL IV ONE
--- NOTE | 2017-08-31 15:58 | DIAGNOSTIC IMAGING REPORT ---
L FOOT MIN 3 VIEWS ROUTINE CLINICAL HISTORY: 62 years-old Female presenting with Pain and swelling of toe, second and third toe pain for 4 months. TECHNIQUE: Frontal, oblique, and lateral views of the left foot were obtained. COMPARISON: None. FINDINGS: The second and third toes are radiographically normal. Osteopenia may be present. Cortical compression plate and screw fixation of the distal fibula with a syndesmotic anchor in place noted at the medial aspect of the distal tibial metaphysis. Osteopenia may be present. This limits evaluation for nondisplaced fracture. No acute fracture or malalignment. Osteophytosis and mild subchondral sclerosis suggested at the first metatarsophalangeal joint. Enthesophyte at the origin of the plantar fascia. Mild diffuse soft tissue swelling. IMPRESSION: Allowing for suspected osteopenia, no acute osseous injury. Normal appearance of the second and third toes. Electronically signed by: Gerald Cano M.D. 08/31/2017 3:57 PM Dictated Date/Time: 08/31/2017 3:55 PM
== END | disposition home or self-care (01) ==
LOC: C.LABPVFM 15:40
PROVIDERS: ATTEND Family Medicine
DX: M79.676 Pain in unspecified toe(s) (principal)

== ENCOUNTER 2021-06-18 07:33 | Observation (INO) ==
--- NOTE | 2021-06-11 16:20 | Anesthesiology Consultation ---
Date of Service June 11, 2021 Assessment & Plan (1) Encounter for pre-operative examination: Chart Review Chart Review: Acceptable Risk for Surgery (pending preop Covid testing results ) and Patient NOT seen in Pre Admission Testing Per nursing assessment 06/11/2021, pt resides in [facility]. No recent travel. Wears mask in public. No known Covid positive exposures or Covid related symptoms. No known Covid infection in the past 90 days. Pt is fully vaccinated for Covid. Preop Covid testing scheduled 06/16/21= will await results History Surgery Operation Date: 06/18/21 08:15 Proposed Procedures p Laparoscopic Hiatal Hernia Repair with Gastric Fundoplication, - Russell Connell DO s Laparoscopic Cholecystectomy - Russell Connell DO Height/Weight Height: 5 ft 5 in Weight: 107.048 kg Allergies Allergy/AdvReac Type Severity Reaction Status Date / Time No Known Allergies Allergy Verified 06/11/21 15:24 Medications Home Medications Medication Instructions Recorded Confirmed Last Taken acetaminophen 650 mg 1,300 mg PO Q8H PRN 12/10/19 06/11/21 10/13/20 tablet,extended release cholecalciferol (vitamin D3) 125 125 mcg PO QAM 12/10/19 06/11/21 10/13/20 09:00 mcg (5,000 unit) tablet (Vitamin D3) melatonin 5 mg tablet 10 mg PO HS 12/10/19 06/11/21 10/13/20 vitamin B complex 1 cap PO QAM 12/10/19 06/11/21 10/13/20 09:00 atorvastatin 20 mg tablet 20 mg PO QAM #90 tab 02/11/21 06/11/21 Unknown escitalopram oxalate 10 mg tablet 10 mg PO QAM #30 tab 02/11/21 06/11/21 Unknown levothyroxine 125 mcg tablet 125 mcg PO QAM #90 tab 02/11/21 06/11/21 Unknown liothyronine 25 mcg tablet 12.5 mcg PO QAM #45 tab 02/11/21 06/11/21 Unknown gabapentin 400 mg capsule 400 mg PO TID #270 cap 03/05/21 06/11/21 Unknown zolpidem 10 mg tablet 10 mg PO HS #90 tab 03/26/21 06/11/21 Unknown xtpaaww-awialvhywpmph-rifoxbaj 250 1 tab PO Q6H PRN 05/18/21 06/11/21 Unknown mg-250 mg-65 mg tablet (Excedrin Extra Strength) dexlansoprazole 60 mg 60 mg PO QAM #90 cap 05/21/21 06/11/21 Unknown capsule,biphase delayed release (Dexilant) diclofenac sodium 1 % topical gel 2 g TOPICAL QID PRN 06/11/21 06/11/21 Unknown Past Medical History Medical History (Updated 06/11/21 @ 16:25 by Kathia Owens PA-C) Chronic low back pain PCP feels related to arthritis and DDD Chronic sinusitis Chronic and stable at this time - usually with weather changes Colitis, regional Usually with diarrhea but more constipated lately due to hiatal hernia symptoms Depression Dyspnea on effort OUT OF SHAPE Fibromyalgia Stable on Gabapentin per records Gastritis GERD without esophagitis Hand paresthesia Intermittent/chronic- patient states possibly due to arthritis or CTS (only occurs when on the computer for prolonged period of time - more so aches than numbness) Hiatal hernia Hypercholesterolemia Hypothyroidism Impaired fasting glucose Hgb A1C 5.9 in September 2020 Insomnia On Ambien and melatonin per records Migraines Obsessive compulsive disorder HX Pneumonia Hx of 2016 Polyarthritis of hand Restless leg PER RECORD-PT DENIES Stroke syndrome Neurologist dx years ago; incidentally found on MRI while checking her headaches No symptoms per patient Past Family History Family History Mother Hypertension Other Breast cancer Denies family history of Ovarian cancer Prostate cancer Diabetes Myocardial infarction Colorectal cancer Past Surgical History Surgical History History of hysterectomy History of nasal surgery had polyp removed History of open reduction and internal fixation (ORIF) procedure left ankle History of tooth extraction Hx of cataract surgery right and left Hx of colonoscopy 2020 Dr. Todd Hx of tonsillectomy Hx of tubal ligation Social History Smoking Status: Former smoker Do You Dip or Chew Tobacco: No Smoking End Date: QUIT 30 YRS AGO Hx Alcohol Use: No Alcohol type: hard liquor alcohol intake frequency: holidays/special occasions only Hx Substance Use: No substance use type: does not use Lab Results Anesthesia Preop Results Results Anesthesia Widget: WBC 8.49 K/uL (4.8-10.8) 04/21/22 Hgb 13.6 g/dL (12.0-16.0) 06/04/21 Hct 41.9 % (37-47) 06/04/21 Plt 424 K/uL (130-400) H 06/04/21 Na 140 mmol/L (136-145) 06/04/21 K 3.9 mmol/L (3.5-5.1) 06/04/21 Cl 105 mmol/L (98-107) 06/04/21 CO2 27 mmol/L (21-32) 06/04/21 BUN 12 mg/dl (6-23) 06/04/21 Creat 0.79 mg/dl (0.6-1.2) 06/04/21 Glucose Level 86 mg/dl (70-99(Fasting)) 06/04/21 Testing Electrocardiogram Date: 06/04/21 Findings: + NSR @ (81bpm ) When compared to EKG from September 22, 2016- nonspecific T wave abnormality, improved in anterolateral leads Other Testing Chest CT 02/24/21= Large hiatal hernia with the majority of the stomach present within the thoracic cavity. No acute intrathoracic abnormality. Bilateral solid pulmonary nodules measure up to 4 mm. The majority of these nodules appear stable dating back to at least 2013 suggestive of benign etiology. There are a few solid nodules in the right middle lobe measuring up to 4 mm which appear to be new from comparison. Follow up per Fleischner criteria. No pneumothorax, pleural effusion, lobar airspace consolidation or overt pulmonary edema. Mild left hemidiaphragmatic elevation with linear subsegmental consolidation suggestive of atelectasis Abdomen CT 02/24/21= Large sliding type hiatal hernia with partially intrathoracic stomach. No acute process within the abdomen. 1.9 cm low- attenuation right adrenal nodule. Although indeterminate, this is probably benig n. Cholelithiasis.
[~2021-06-18 07:33] MED LIST changes: -ATOR-22 PO; -B-CO1CAP5 PO; -BUPR150T5 PO; -CHOL1TAB46 PO; -CLB/200 PO; -DEXL60CA4 PO; -ESCI10TA17 PO; -GABA-112 PO; -IMD/2 PO; -LEVO125T72 PO; -LIOT50TA3 PO; +LR 15ML/HR IV SCH; -MELATAB2 PO; -RANI300T2 PO; -TRAM-10 PO; -ZOLP10TA PO; +ceFAZolin 2000MG 2,000 MG/15 ML SYR IV SCH
[2021-06-18] MEDS ORDERED: ACETAMINOPHEN 1000 MG/100 ML IV IV ONE (07:37)
--- NOTE | 2021-06-18 08:10 | History & Physical Report ---
Date of Service June 18, 2021 Assessment & Plan (1) Hiatal hernia with gastroesophageal reflux: Plan: She has failed conservative therapy. We have discussed her options and she has had a thorough work-up. I believe she is a candidate for repair of her hiatal hernia and we will perform a fundoplication at the same time to assist with her acid reflux. We will also perform cholecystectomy. We previously discussed risks associated with today's procedure which include bleeding, infection, bile duct injury or leaks, injury to other organs such as spleen diaphragm stomach lungs etc., pneumothorax, DVT, PE, SD, CVA etc. Following our discussion I answered all of her questions. We also discussed reasonable postoperative expectations in regards to activities as well as diet etc. We will proceed today with laparoscopic hiatal hernia repair ,gastric fundoplication and cholecystectomy.She agrees with the plan. (2) Cholelithiasis: (3) Incarcerated hiatal hernia: (4) GERD without esophagitis: History of Present Illness Primary Care Provider: MD Kelsie Doran is here today for laparoscopic skills here today for laparoscopic hiatal hernia repair, gastric fundoplication, and cholecystectomy. There have been no changes to her health history since I had seen her last in the office. Allergies Allergy/AdvReac Type Severity Reaction Status Date / Time No Known Allergies Allergy Verified 06/18/21 08:04 Home Medications Medication Instructions Recorded Confirmed Type acetaminophen 650 mg 1,300 mg PO Q8H PRN 12/10/19 06/18/21 History tablet,extended release cholecalciferol (vitamin D3) 125 125 mcg PO QAM 12/10/19 06/18/21 History mcg (5,000 unit) tablet (Vitamin D3) melatonin 5 mg tablet 10 mg PO HS 12/10/19 06/18/21 History vitamin B complex 1 cap PO QAM 12/10/19 06/18/21 History atorvastatin 20 mg tablet 20 mg PO QAM #90 tab 02/11/21 06/18/21 Rx escitalopram oxalate 10 mg tablet 10 mg PO QAM #30 tab 02/11/21 06/18/21 Rx liothyronine 25 mcg tablet 12.5 mcg PO QAM #45 tab 02/11/21 06/18/21 Rx gabapentin 400 mg capsule 400 mg PO TID #270 cap 03/05/21 06/18/21 Rx dovugnj-dimzmkilietra-llqochpp 250 1 tab PO Q6H PRN 05/18/21 06/18/21 History mg-250 mg-65 mg tablet (Excedrin Extra Strength) dexlansoprazole 60 mg 60 mg PO QAM #90 cap 05/21/21 06/18/21 Rx capsule,biphase delayed release (Dexilant) diclofenac sodium 1 % topical gel 2 g TOPICAL QID PRN 06/11/21 06/18/21 History zolpidem 10 mg tablet 10 mg PO HS #90 tab 06/16/21 06/18/21 Rx levothyroxine 112 mcg tablet 112 mcg PO DAILY #30 tab 06/17/21 06/18/21 Rx Past Med/Surg History Medical History Chronic low back pain PCP feels related to arthritis and DDD Chronic sinusitis Chronic and stable at this time - usually with weather changes Colitis, regional Usually with diarrhea but more constipated lately due to hiatal hernia symptoms Depression Dyspnea on effort OUT OF SHAPE Fibromyalgia Stable on Gabapentin per records Gastritis GERD without esophagitis Hand paresthesia Intermittent/chronic- patient states possibly due to arthritis or CTS (only occurs when on the computer for prolonged period of time - more so aches than numbness) Hiatal hernia Hypercholesterolemia Hypothyroidism Impaired fasting glucose Hgb A1C 5.9 in September 2020 Insomnia On Ambien and melatonin per records Migraines Obsessive compulsive disorder HX Pneumonia Hx of 2016 Polyarthritis of hand Restless leg PER RECORD-PT DENIES Stroke syndrome Neurologist dx years ago; incidentally found on MRI while checking her headaches No symptoms per patient Surgical History History of hysterectomy History of nasal surgery had polyp removed History of open reduction and internal fixation (ORIF) procedure left ankle History of tooth extraction Hx of cataract surgery right and left Hx of colonoscopy 2020 Dr. 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 Beliefs That Will Affect Care: None marital status: Current Living Situation: Spouse current occupational status: disabled How many Children do You have: 2 Other Information That Helps Us Care for You: No Feels Safe at Home: Yes Safety Concerns: Feels Safe At This Time caffeine: No during the past year weight has: increased > 10 lbs Dental Care, Regularly: Yes Physical Activity Frequency: Does not Exercise Seatbelt Use: always Sunscreen Use: No Assistive Devices: Cane and Glasses Assistive Devices Comment: CANE PRN Review of Systems All systems reviewed & are unremarkable except as noted in HPI & below Physical Exam Constitutional: WD/WN, vitals as above no acute distress and not ill appearing Eyes: PERRL, conjunctivae normal, anicteric sclerae EOM intact bilaterally ENMT: external ear and nose normal, oropharynx normal Ears: no hearing impairment Neck: trachea midline, no thyromegaly Respiratory: normal respiratory effort; no respiratory distress and does not use accessory muscles Cardiovascular: Rate/Rhythm: regular rate and regular rhythm Gastrointestinal (Abdomen): normal bowel sounds, soft, nontender, no hepatosplenomegaly Skin: no rashes, warm and dry Psychiatric: Orientation: alert, oriented x 3 and cooperative
[2021-06-18] MEDS ORDERED: MIDAZOLAM HCL 1 MG/ML 2ML VIAL ONE (08:39)
[2021-06-18] MEDS ORDERED: fentaNYL citrate 100 MCG/2 ML VIAL ONE (08:39)
[2021-06-18] MEDS ORDERED: ATROPINE SULFATE 0.1 MG/ML 10ML SYR IV PRN (09:02)
[2021-06-18] MEDS ORDERED: ONDANSETRON INJ 2 MG/ML 2 ML VIAL IV PRN (09:02)
[2021-06-18] MEDS ORDERED: ePHEDrine sulfate 50 MG/ML AMP IV PRN (09:02)
[2021-06-18] MEDS ORDERED: SCOPOLAMINE 1 MG TDSY TD ONE ×2 (09:20→09:22)
[2021-06-18] MEDS ORDERED: BUPIVACAINE 0.5 % 5 MG/1 ML MPF 30ML VIAL ONE (09:23)
[2021-06-18] MEDS ORDERED: EPINEPHrine INJ 1 MG/ML AMP ONE (09:23)
[2021-06-18] MEDS ORDERED: DEXAMETHASONE SOD INJ 4 MG/ML VIAL ONE (10:12)
[2021-06-18] MEDS ORDERED: LIDOCAINE 2% 2 ML VIAL/AMP(20MG/ML) INFIL ONE (10:12)
[2021-06-18] MEDS ORDERED: PROPOFOL IV EMULSION 10 MG/ML 20 ML VIAL IV ONE (10:12)
[2021-06-18] MEDS ORDERED: ONDANSETRON INJ 2 MG/ML 2 ML VIAL ONE ×2 (10:12→11:35)
[2021-06-18] MEDS ORDERED: ROCURONIUM BROMIDE 10 MG/ML 5 ML VIAL IV ONE (10:12)
[2021-06-18] MEDS ORDERED: GLYCOPYRROLATE 0.2 MG/ML VIAL ONE (10:13)
[2021-06-18] MEDS ORDERED: NEOSTIGMINE METHYLSULFATE 1 MG/ML 10ML VIAL ONE (10:13)
[2021-06-18] MEDS ORDERED: ePHEDrine sulfate 50 MG/ML AMP ONE (10:13)
[2021-06-18] MEDS ORDERED: PHENYLEPHRINE HCL 10 MG/ML VIAL ONE (10:22)
[2021-06-18] MEDS ORDERED: KETOROLAC 30 MG/ML VIAL ONE (10:29)
--- NOTE | 2021-06-18 11:48 | Post Operative Brief Note ---
PG Immediate Post Op with CF Date of Surgery June 18, 2021 Pre & Post Diagnosis Operation Date: 06/18/21 09:25 Pre-Op Diagnosis: Hiatal hernia with gastroesophageal reflux Cholelithiasis Incarcerated hiatal hernia Gastroesophageal reflux disease without esophagitis Post-Op Diagnosis: Hiatal hernia with gastroesophageal reflux Cholelithiasis Incarcerated hiatal hernia Gastroesophageal reflux disease without esophagitis I identified the patient and participated in the time-out.: Yes Procedure Operation Date: 06/18/21 09:25 Actual Procedures s Laparoscopic Cholecystectomy - Russell Connell DO p Laparoscopic Hiatal Hernia Repair with 360 Gastric Fundoplication, Posterior Gastroplexy, (Not Applicable) - Russell Connell DO Surgeon Russell Connell DO Supervisor Special Services vianney Estrella Estimated Blood Loss 5 Findings Consistent with Post-Op Diagnosis Specimens Specimen Description: A. gallbladder
[2021-06-18] MEDS: fentaNYL citrate 100 MCG/2 ML VIAL IV PRN ×4 (11:57→12:12)
[2021-06-18] MEDS: HYDROmorphone INJ 1 MG/ML SYRINGE IV PRN ×2 (12:24→12:29)
[2021-06-18] MEDS ORDERED: MoRPHine SULFATE 4 MG/ML 1 ML CARP\\VIAL IV PRN (14:57)
[2021-06-18] MEDS ORDERED: oxyCODONE/ACETAMINOPHEN 5mg/325mg TAB PO PRN ×2 (14:57)
[2021-06-18] MEDS ORDERED: MoRPHine SULFATE 2 MG/ML CARP IV PRN (14:57)
--- NOTE | 2021-06-18 15:19 | Anesthesiology Progress Note ---
Date of Service June 18, 2021 Anesthesia Post Procedure Vital Signs Vital Signs: Temp Pulse Pulse Resp BP Pulse Ox 06/18/21 15:01 37.2 C 96 H 18 115/74 95 06/18/21 14:40 36.8 C 921 H 20 127/80 94 06/18/21 14:25 94 H 20 127/80 95 06/18/21 14:10 93 H 16 141/81 H 94 06/18/21 13:55 37.0 C 96 H 15 141/84 H 94 06/18/21 13:45 96 H 18 139/76 94 06/18/21 13:30 89 20 123/96 94 06/18/21 13:20 36.5 C 90 18 137/82 95 06/18/21 13:10 95 H 16 143/65 H 96 06/18/21 13:00 92 H 18 142/71 H 94 06/18/21 12:50 85 19 141/93 H 97 06/18/21 12:40 95 H 20 163/75 H 94 06/18/21 12:30 36.4 C L 91 H 20 164/92 H 96 06/18/21 12:20 93 H 16 166/79 H 95 06/18/21 12:10 95 H 24 172/99 H 97 06/18/21 12:00 96 H 19 161/103 H 97 06/18/21 11:53 36.3 C L 102 H 20 149/100 H 98 06/18/21 08:06 36.5 C 87 20 151/99 H 95 Pain Intensity Abdomen: Pain Intensity: 4 Transfer of Care Handoff Completed per policy Notes Mental Status: alert / awake / arousable and participated in evaluation Patient Amnestic to Procedure: Yes Nausea / Vomiting: adequately controlled Pain: adequately controlled Airway Patency, RR, SpO2: stable & adequate BP & HR: stable & adequate Hydration State: stable & adequate Anesthetic Complications: no major complications apparent and Pt Satisfied with anesthetic care
[2021-06-18] MEDS: LACTATED RINGER'S 1,000 ML IV SCH (15:29)
[2021-06-18] MEDS: GABAPENTIN 400 MG CAP PO SCH ×2 (15:49→20:17)
[2021-06-18] MEDS ORDERED: CHECK SCOPOLAMINE PATCH PLACEMENT SCH (16:00)
[2021-06-18] MEDS: ONDANSETRON INJ 2 MG/ML 2 ML VIAL IV PRN ×2 (17:28→21:26)
[2021-06-18] MEDS ORDERED: ZOLPIDEM TARTRATE 10 MG TAB PO SCH (21:00)
[2021-06-18] MEDS ORDERED: MELATONIN 3 MG TAB PO SCH (21:00)
[2021-06-19] MEDS: LACTATED RINGER'S 1,000 ML IV SCH (04:01)
[2021-06-19] MEDS ORDERED: LEVOTHYROXINE SODIUM 112 MCG TABLET PO SCH (06:30)
[2021-06-19] MEDS ORDERED: LIOTHYRONINE SODIUM 25 MCG TAB PO SCH (06:30)
[2021-06-19] MEDS: GABAPENTIN 400 MG CAP PO SCH (08:15)
[2021-06-19] MEDS ORDERED: PANTOprazole 40 MG TAB PO SCH (09:00)
[2021-06-19] MEDS ORDERED: ESCITALOPRAM OXALATE 10 MG TAB PO SCH (09:00)
--- NOTE | 2021-06-19 09:01 | Surgery Progress Note ---
Date of Service June 19, 2021 Assessment & Plan (1) Hiatal hernia: Plan: POD 1 lap Shari continue on liquids f/u later today for possible d/c as above. pt seen. doing as expected. ok for d/c. instructions given. Admission and Anticipated Discharge Date Admission Date: June 18, 2021 Subjective some pain with clears similar to preop Physical Exam Gastrointestinal (Abdomen): Inspection/Auscultation: + abdominal surgical incision (dry); abdomen not distended Percussion/Palpation: abdomen soft Results & Data ([facility]) Vital Signs (Past 12 Hours) Vital Signs Temp Pulse Resp BP Pulse Ox 06/19/21 07:31 37.1 C 73 16 118/68 91 06/19/21 03:28 37.2 C 74 18 114/67 96 06/19/21 00:32 86 16 96 06/18/21 21:30 36.6 C 86 18 136/81 91 PG Care Time/CCT Total # of Minutes Spent Total Time Spent with Patient: Total time spent is greater than 50% in coordination of care (as documented) at patient's floor/unit and/or counseling patient: Coding Level of Care Code None Diagnoses Hiatal hernia K44.9
--- NOTE | 2021-06-30 11:46 | Operative Report ---
PG Post Operative Report Pre & Post Diagnosis Operation Date: 06/18/21 09:25 Pre-Op Diagnosis: Hiatal hernia with gastroesophageal reflux Cholelithiasis Incarcerated hiatal hernia Gastroesophageal reflux disease without esophagitis Post-Op Diagnosis: Hiatal hernia with gastroesophageal reflux Cholelithiasis Incarcerated hiatal hernia Gastroesophageal reflux disease without esophagitis I identified the patient and participated in the time-out.: Yes Procedure Operation Date: 06/18/21 09:25 Actual Procedures s Laparoscopic Cholecystectomy - Russell Connell DO p Laparoscopic Hiatal Hernia Repair with 360 Gastric Fundoplication, Posterior Gastroplexy, (Not Applicable) - Russell Connell DO Surgeon Russell Connell DO Hatchery Worker vianney Estrella Estimated Blood Loss 5 Findings Consistent with Post-Op Diagnosis Specimens gallbladder Description of Procedure After informed consent was obtained the patient was taken to the operating room and placed in supine position. After successful intubation the abdomen was sterilely prepped and draped in usual fashion. Began with a supraumbilical incision with 11 blade scalpel. This was carried down through the soft tissue using cautery. The anterior rectus fascia was opened using cautery and two #0 Vicryl stay sutures were placed. Peritoneum was elevated with hemostats and incised under direct vision using a Metzenbaum scissor. A finger sweep was performed. A 12 mm Pool trocar was placed and the abdomen was insufflated to 20 mmHg. The laparoscope was inserted and the abdomen examined in 360 degrees. A left upper quadrant 12 mm port and upper subxiphoid 5 mm port , 2 right upper quadrant 5 mm ports and a left upper quadrant 5 mm port were all placed under direct vision. The patient was placed in a reverse Trendelenburg position. We began with the gallbladder. It was grasped and elevated superiorly and laterally. A [place] dissector was used to take adhesions down around the neck of the gallbladder. I was able to readily identify the cystic duct which was skeletonized. It was clipped twice proximally and once distally and transected. In similar fashion the cystic artery was then identified skeletonized clipped and divided. The gallbladder was removed from the gallbladder fossa using electrocautery. It was placed into an Endo Catch bag and removed from the camera port site. My attention then turned to the hiatal hernia. A liver retractor was used to elevate the left lobe of the liver throughout the procedure. There was a moderate size hiatal hernia with probably 50% of the stomach incarcerated. We are able to easily reduce the stomach using graspers. I began by taking down the hernia sac staying along the right rober of the diaphragm. I did this using a harmonic scalpel. I came up along the right rober of the diaphragm around the anterior portion and down over on the left rober. After had this accomplished we had anesthesia remove the orogastric tube and replace it with a 50 Macedonian bougie. After the hernia sac taken down the stomach easily stayed in the abdominal cavity with no tension. Next I took down the top 4-5 short gastric vessels again using the harmonic scalpel. Next I set about repairing the hernia itself. I was able to use the Endo Stitch device with 0 Surgidac. Several stitches were placed posterior to the stomach to reapproximate the right and left rober of the diaphragm. Once this was accomplished I used the same device to close the defect anteriorly. I was able accomplish this with minimal tension and I did not believe mesh would be required. Next I Created a small window in the retrogastric space just proximal to the l eft gastric vessels. I was able to use a grasper to pull the fundus through this window without any difficulty. I was able to easily perform a "shoeshine test". I used the 0 Surgidac to perform a posterior gastropexy by securing the body of the stomach to the right rober of the diaphragm. Next I completed the 360 degree wrap by securing the lateral side of the body of the stomach to the now medial fundus. We did grasp pre-esophageal fat pad and incorporated this into the wrap as well. Once the wrap was completed we had anesthesia remove the bougie. The wrap was nice and floppy with no tension. There is adequate hemostasis at the end of the procedure. I looked at the gallbladder fossa and there was no evidence of bile leaks and there was adequate hemostasis there as well. Irrigation of the upper abdomen was performed. The liver retractor instruments and all the trochars were removed and the abdomen was desufflated. The fascia of the camera port was closed using 0 Vicryl in a [id number] fashion. All the wounds were irrigated and closed using 4-0 Monocryl. Marcaine with epinephrine was injected around them for postoperative analgesia and skin glue used as dressing. Patient was awakened extubated and transferred to recovery in stable condition. My physician research study assistant was present through the entire case was instrumental in assisting with running the camera, traction/ countertraction during my dissection ,wound closure and dressing placement. I attest to the content of the Intraoperative Record and any orders documented therein. Any exceptions are noted below.
== END 2021-06-19 13:13 | disposition home or self-care (01) ==
LOC: PACUINP 07:33 → ASU 07:33 → 3E 14:53

== ENCOUNTER 2021-10-14 17:23 | Inpatient (IN) ==
--- NOTE | 2021-10-14 17:41 | ED Triage Note ---
Date of Service October 14, 2021 History of Present Illness This patient was briefly evaluated while in triage. An abbreviated physical exam was performed. This patient is a 66-year-old Female with abd pain, vomiting, and unable to keep food/fluids in. Hx hiatal hernia repair. Physical Exam GENERAL: 66 year old female. In no acute distress. SKIN: No lesions or rashes. HEART: Regular rate and rhythm. LUNGS: Clear to auscultation. ABDOMEN: Bowel sounds normoactive. No guarding or rigidity. Epigastric abd ttp noted. NEURO: Alert and oriented. No deficits. MUSCULOSKELETAL: No deformities to inspection of the extremities. PSYCH: Patient is pleasant and answers all questions appropriately. Initial orders for labs and / or imaging were placed and patient was placed in the waiting area until a bed is available. Please see further documentation for the full ED course.
[2021-10-14 18:49] LABS: Basophils # (auto) 0.06 K/uL (0-0.2); Basophils % (auto) 0.3 %; Eosinophils # (auto) 0.07 K/uL (0-0.50); Eosinophils % (auto) 0.3 %; Hematocrit (blood only) 43.1 % (34.1-44.9); Hemoglobin 14.5 g/dl (12.0-16.0); Immature Granulocytes # (auto) 0.12 K/uL (0.00-0.02); Immature Granulocytes % (auto) 0.6 %; Lymphocytes # (auto) 4.55 K/uL (1.2-3.4); Mean Corpuscular Hemoglobin 29.6 pg (25.0-34.0); Mean Corpuscular Hgb Conc 33.6 g/dL (32.0-36.0); Mean Platelet Volume 10.1 fL (9.4-12.3); Monocytes # (auto) 1.67 K/uL (0.24-0.82); Monocytes % (auto) 7.7 %; Neutrophils # (auto) 15.24 K/uL (1.4-6.5); Neutrophils % (auto) 70.1 %; Platelet Count 550 K/uL (130-400); RDW Coefficient of Variation 14.3 % (11.5-14.5); RDW Standard Deviation 45.3 fL (36.4-46.3); White Blood Count 21.71 K/ul (4.8-10.8)
[2021-10-14 19:18] LABS: Alanine Aminotransferase 21 U/L (7-52); Albumin Globulin Ratio 1.3 (0.9-2); Albumin Level 3.9 gm/dl (3.4-5.0); Alkaline Phosphatase 61 U/L (34-104); Amylase 25 U/L (25-115); Anion Gap 13 (3-11); BUN Creatinine Ratio 23.8 (10-20); Bilirubin,Total 0.9 mg/dl (0.2-1.0); Blood Urea Nitrogen 20 mg/dl (6-23); Calcium 9.6 mg/dl (8.5-10.1); Carbon Dioxide 27 mmol/L (21-32); Chloride 99 mmol/L (98-107); Est GFR (African American) 83.9 ml/min; Est GFR (Non-African American) 72.4 ml/min; Globulin 3.1 gm/dl (2.5-4.0); Glucose 95 mg/dl (70-99(Fasting)); Lipase 8 U/L (11-82); Magnesium 1.9 mg/dl (1.7-2.4); Sodium 139 mmol/L (136-145)
[2021-10-14] MEDS ORDERED: MoRPHine SULFATE 4 MG/ML 1 ML CARP\\VIAL IV STA (20:38)
[2021-10-14] MEDS ORDERED: ONDANSETRON INJ 2 MG/ML 2 ML VIAL IV STA (20:38)
[2021-10-14] MEDS ORDERED: SODIUM CHLORIDE 0.9% 1000ML 1,000 ML IV ONE (20:38)
[2021-10-14] MEDS ORDERED: PIPERACILLIN/TAZOBACTAM 4.5 GM/120 ML BAG IV ONE (20:39)
[2021-10-14 20:45] LABS: INR 1.1 (0.9-1.1); Partial Thromboplastin Time 27.6 Seconds (21.0-31.0); Prothrombin Time 12.1 Seconds (9.0-12.0)
[2021-10-14] MEDS ORDERED: OPTIRAY 300 100mL IV ONE (21:35)
[2021-10-14 22:01] LABS: Potassium 3.2 mmol/L (3.5-5.1)
--- NOTE | 2021-10-14 22:42 | Surgery Consultation ---
Date of Consultation October 14, 2021 Assessment & Plan (1) Vomiting: I discussed with the treating emergency room physician. He is planning on having the hospitalist admit the patient. Patient's CAT scan was reviewed and it looks like she has recurrence of her hiatal hernia. I discussed with the patient that this could be the etiology of her current symptoms. I also discussed with her it is possible that she may have had silent aspiration with all of her emesis. She is noted to have a leukocytosis and this could be due to the colitis noted on CT scan or could be related to her nausea vomiting and possible bronchitis/aspiration pneumonia. I recommend we proceed in the following manner: Provide antiemetics Hydrate with IV fluids, supplementing her potassium Continue antibiotics had been initiated in the emergency department in the form of Zosyn It may be prudent to try and intravenous PPI to see if this helps alleviate her symptoms Reviewed the case with my attending Dr. Ron and he does not feel there is any need for emergent surgical intervention this evening. The case will be reviewed tomorrow with Dr. Connell, the performing surgeon of her previous surgeries. I did discuss with the patient that she may need some additional testing including but not limited to studies such as a swallowing study or even an upper endoscopy, however this will be determined once Dr. Cnonell has a chance to review this case. History of Present Illness Reason for Consultation: History of Shrai fundoplication with recurrent paraesophageal hernia History of Present Illness This is a 66-year-old female who underwent a combined Shari fundoplication with gastropexy and cholecystectomy by Dr. Connell of [facility] on June 18 of this year. Patient notes that this procedure was performed as on upper endoscopy she was noted to have a large hiatal hernia. Due to this hiatal hernia the patient says that she was having persistent nausea. The patient does note that prior to this procedure when she would eat large meals of solid food she would have emesis. She did note that prior to the surgery she was able to keep down soft foods such as yogurt and liquids. The patient has since followed up with Dr. Connell since his surgery. His most recent visit was approximately 6 weeks postoperatively where patient was noted t o be doing well. The patient presented to the emergency department today because she has had nausea and vomiting for approximately 3 weeks. Patient says that she is seen multiple medical providers for this problem. She was seen in the emergency department on September 24 and October 08 of this year. Each time the patient was discharged home. She also saw her primary care physician on October 08 where she was treated for bronchitis. Concerning her current symptomatology as noted this has been going on for approximately 3 weeks. The patient initially thought she had a gastroenteritis so she did not immediately seek medical attention. However, her symptoms have persisted. She does note some epigastric pain that does not radiate and improves after she vomits. She has an associated sore th roat. She notes that her bowels are moving every other day which is normal for her. She denies any melena or hematochezia. She notes with her emesis she has not had any hematemesis. She notes that she can keep almost no foods and only some liquids down. She denies any dysphagia and reports a 12 pound weight loss. Other than the surgeries listed above she has not had any additional abdominal surgeries. It is nowhere the mention that the patient was taking a PPI known as Dexilant prior to her surgeries. She notes that she tried to wean herself off of these medications but was unsuccessful. She also notes that recently she had to stop taking her Dexilant as her insurance would no longer cover this medication. She feels that her current symptomatology correlates with the cessation of this medication. She also notes that she has tried alternative proton pump inhibitors without success. Finally, the patient notes that during the past 3 weeks she has had fevers as high as 102 but his fevers have since resolved. The patient underwent a CT scan of the abdomen and pelvis. Patient was noted to have findings concerning for pancolitis. In addition she was noted to have a large paraesophageal gastric herniation with fluid in the distal esophagus. Labs including CBC were white blood cell count was 21.7. Hemoglobin, and hematocrit were normal. Her platelet count was 550,000. Chemistry profile showed sodium was normal with a potassium of 3.2. BUN and creatinine were noted to be normal. There is no elevation of lactic acid. There is no elevation of LFTs, bilirubin, or lipase. At the time of my interview the patient was resting comfortably in bed and she was in no distress. Allergies Allergy/AdvReac Type Severity Reaction Status Date / Time No Known Allergies Allergy Verified 10/13/21 15:20 Home Medications Medication Instructions Recorded Confirmed Type cholecalciferol (vitamin D3) 125 125 mcg PO QAM 12/10/19 10/13/21 History mcg (5,000 unit) tablet (Vitamin D3) melatonin 5 mg tablet 10 mg PO HS 12/10/19 10/13/21 History vitamin B complex 1 cap PO QAM 12/10/19 10/13/21 History mwnlwng-grevkvepslzaq-zqlzriap 250 1 tab PO Q6H PRN Migraine Headache 05/18/21 10/13/21 History mg-250 mg-65 mg tablet (Excedrin Extra Strength) dexlansoprazole 60 mg 60 mg PO QAM #90 caps 05/21/21 10/13/21 Rx capsule,biphase delayed release (Dexilant) diclofenac sodium 1 % topical gel 2 g topical QID PRN Pain 06/11/21 10/13/21 History levothyroxine 112 mcg tablet 112 mcg PO DAILY #30 tabs 06/17/21 10/13/21 Rx gabapentin 400 mg capsule 400 mg PO TID #270 caps 07/17/21 10/13/21 Rx lactobacillus combination no.9 4 4,000 mmu cells PO DAILY 07/28/21 10/13/21 History billion cell capsule (Adult 50 Plus Probiotic) atorvastatin 20 mg tablet 20 mg PO QAM #90 tabs 08/12/21 10/13/21 Rx escitalopram oxalate 10 mg tablet 10 mg PO DAILY #90 tabs 08/12/21 10/13/21 Rx liothyronine 25 mcg tablet 12.5 mcg PO QAM #45 tabs 08/12/21 10/13/21 Rx cyclobenzaprine 5 mg tablet 5 mg PO TID PRN muscle spasm #10 09/24/21 10/13/21 Rx tabs amoxicillin 875 mg-potassium 1 tab PO Q12H #20 tabs 09/30/21 10/13/21 Rx clavulanate 125 mg tablet prednisone 20 mg tablet See Rx Instructions PO .COMPLEX 09/30/21 10/13/21 Rx #30 tabs albuterol sulfate 90 mcg/actuation 3 inh inhalation Q6H #18 grams 10/08/21 10/13/21 Rx aerosol inhaler benzonatate 200 mg capsule 200 mg PO TID PRN cough #40 caps 10/08/21 10/13/21 Rx doxycycline hyclate 100 mg tablet 100 mg PO BID 7 days #14 tabs 10/08/21 10/13/21 Rx ondansetron 4 mg disintegrating 4 - 8 mg PO Q6H PRN nausea and 10/08/21 10/13/21 Rx tablet vomiting #20 tabs eszopiclone 2 mg tablet (Lunesta) 2 mg PO ONCE PRN insomnia #30 tabs 10/13/21 10/13/21 Rx codeine 10 mg-guaifenesin 100 mg/5 5 ml PO Q6H PRN cough #118 mL 10/14/21 Rx mL oral liquid Patient History Medical History Chronic low back pain PCP feels related to arthritis and DDD Chronic sinusitis Chronic and stable at this time - usually with weather changes Colitis, regional Usually with diarrhea but more constipated lately due to hiatal hernia symptoms Depression Dyspnea on effort OUT OF SHAPE Fibromyalgia Stable on Gabapentin per records Gastritis GERD without esophagitis Hand paresthesia Intermittent/chronic- patient states possibly due to arthritis or CTS (only occurs when on the computer for prolonged period of time - more so aches than numbness) Hiatal hernia Hypercholesterolemia Hypothyroidism Impaired fasting glucose Hgb A1C 5.9 in September 2020 Insomnia On Ambien and melatonin per records Migraines Obsessive compulsive disorder HX Pneumonia Hx of 2016 Polyarthritis of hand Restless leg PER RECORD-PT DENIES Stroke syndrome Neurologist dx years ago; incidentally found on MRI while checking her headaches No symptoms per patient Surgical History History of hysterectomy History of nasal surgery had polyp removed History of open reduction and internal fixation (ORIF) procedure left ankle History of repair of hiatal hernia (06/18/21) s Laparoscopic Cholecystectomy - Russell Connell DO p Laparoscopic Hiatal Hernia Repair with 360 Gastric Fundoplication, Posterior Gastroplexy, - Russell Connell DO History of tooth extraction Hx of cataract surgery right and left Hx of colonoscopy 2020 Dr. 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 Beliefs That Will Affect Care: None marital status: Current Living Situation: Spouse current occupational status: disabled How many Children do You have: 2 Feels Safe at Home: Yes Safety Concerns: Feels Safe At This Time caffeine: No during the past year weight has: increased > 10 lbs Dental Care, Regularly: Yes Physical Activity Frequency: Does not Exercise Seatbelt Use: always Sunscreen Use: No Assistive Devices: None Review of Systems Constitutional: + fever; no chills Eyes: no eye pain Ear, Nose, Mouth, Throat: no ear pain Respiratory: + cough; no dyspnea Cardiovascular: no chest pain Gastrointestinal: as per Subjective / HPI, + abdominal pain (Epigastric), + nausea and + vomiting; no coffee ground emesis and no diarrhea/loose stools Genitourinary: no dysuria Musculoskeletal: no back pain Integumentary: no rash Neurologic: no localized weakness Physical Exam Constitutional: WD/WN, vitals as above Eyes: no conjunctival abnormality ENMT: Ears: no hearing impairment and no external ear abnormality Mouth: no oropharynx abnormality Neck: trachea midline Respiratory: normal respiratory effort; no respiratory distress and no labored breathing Breath sounds slightly decreased at bases. No wheezing or use of accessory muscles. Cardiovascular: Rate/Rhythm: regular rate and regular rhythm Gastrointestinal (Abdomen): Abdomen is soft, nonrigid, nondistended. Patient had 6 well-healed laparoscopic incisions from her previous surgeries. Bowel sounds are present. There is no rebound tenderness or guarding. Patient did have pain with palpation in the epigastric area. Musculoskeletal: No calf tenderness, no lower extremity edema Skin: no rashes Neurologic: moves all extremities Psychiatric: A+Ox3, euthymic affect Results & Data ([facility]) Vital Signs (Past 12 Hours) Vital Signs Temp Pulse Pulse Resp BP BP Pulse Ox 10/14/21 21:01 91 H 16 95 10/14/21 21:00 93 H 18 132/97 95 10/14/21 17:37 36.4 C L 107 H 20 137/112 H 94 O2 Del Method 10/14/21 21:01 Room Air 10/14/21 21:00 Room Air 10/14/21 17:37 Room Air PG Care Time/CCT Total # of Minutes Spent Total Time Spent with Patient: Total time spent is greater than 50% in coordination of care (as documented) at patient's floor/unit and/or counseling patient: Coding Level of Care Code 97228 Inpt Consult Level 5 Diagnoses Vomiting R11.2 Nausea presence: with nausea Vomiting type: unspecified (1) Vomiting Nausea presence: with nausea Vomiting type: unspecified Qualified Code(s): R11.2 - Nausea with vomiting, unspecified
--- NOTE | 2021-10-14 22:54 | History & Physical Report ---
Date of Service October 14, 2021 Assessment & Plan (1) Vomiting: Plan: Uncontrolled nausea/vomiting/abdominal pain/status post repair of hiatal hernia 07/05- Recurrence of hiatal hernia noted on CT scan NPO Zofran 4 mg IV every 6 hours as needed Zosyn 4.5 g IV every 8 hours Pantoprazole 40 mg IV every 12 hours NSS + KCl 20 MEQ's at 100 mils per hour General surgery consult (2) History of repair of hiatal hernia: Plan: See above (3) Restless legs syndrome: (4) Hiatal hernia with gastroesophageal reflux: Plan: See above (5) Hypothyroidism: Plan: Continue levothyroxine and liothyronine (6) Migraines: Plan: Migraines/fibromyalgia/depression/insomnia/OCD- Continue melatonin and escitalopram (7) Fibromyalgia: (8) Depression: (9) Hypercholesterolemia: (10) Insomnia: (11) Obsessive compulsive disorder: History of Present Illness Chief Complaint: The patient presents to the emergency department with recurrence of nausea and vomiting after having had surgery for hiatal hernia, and CT scan in ED showing recurrence of the hiatal hernia Primary Care Provider: Iesha Smith MD The patient is a 66-year-old female with a past medical history including repair of a paraesophageal hiatal hernia, restless leg syndrome, GERD, migraine, incarcerated hiatal hernia, hypothyroidism, hypercholesterolemia, stroke syndrome, vitamin D deficiency and pneumonia. She was assessed by general surgery in the ED this evening, due to a recurrence of symptoms and CT scan suggesting a recurrence of her recently repaired paraesophageal hiatal hernia. Medicine was asked admit patient for symptom control and further work-up Allergies Allergy/AdvReac Type Severity Reaction Status Date / Time No Known Allergies Allergy Verified 10/13/21 15:20 Home Medications Medication Instructions Recorded Confirmed Type cholecalciferol (vitamin D3) 125 125 mcg PO QAM 12/10/19 10/13/21 History mcg (5,000 unit) tablet (Vitamin D3) melatonin 5 mg tablet 10 mg PO HS 12/10/19 10/13/21 History vitamin B complex 1 cap PO QAM 12/10/19 10/13/21 History mrrjxjq-rkrnsxsbpgwty-dyiuhcps 250 1 tab PO Q6H PRN Migraine Headache 05/18/21 10/13/21 History mg-250 mg-65 mg tablet (Excedrin Extra Strength) dexlansoprazole 60 mg 60 mg PO QAM #90 caps 05/21/21 10/13/21 Rx capsule,biphase delayed release (Dexilant) diclofenac sodium 1 % topical gel 2 g topical QID PRN Pain 06/11/21 10/13/21 History levothyroxine 112 mcg tablet 112 mcg PO DAILY #30 tabs 06/17/21 10/13/21 Rx gabapentin 400 mg capsule 400 mg PO TID #270 caps 07/17/21 10/13/21 Rx lactobacillus combination no.9 4 4,000 mmu cells PO DAILY 07/28/21 10/13/21 History billion cell capsule (Adult 50 Plus Probiotic) atorvastatin 20 mg tablet 20 mg PO QAM #90 tabs 08/12/21 10/13/21 Rx escitalopram oxalate 10 mg tablet 10 mg PO DAILY #90 tabs 08/12/21 10/13/21 Rx liothyronine 25 mcg tablet 12.5 mcg PO QAM #45 tabs 08/12/21 10/13/21 Rx cyclobenzaprine 5 mg tablet 5 mg PO TID PRN muscle spasm #10 09/24/21 10/13/21 Rx tabs amoxicillin 875 mg-potassium 1 tab PO Q12H #20 tabs 09/30/21 10/13/21 Rx clavulanate 125 mg tablet prednisone 20 mg tablet See Rx Instructions PO .COMPLEX 09/30/21 10/13/21 Rx #30 tabs albuterol sulfate 90 mcg/actuation 3 inh inhalation Q6H #18 grams 10/08/21 10/13/21 Rx aerosol inhaler benzonatate 200 mg capsule 200 mg PO TID PRN cough #40 caps 10/08/21 10/13/21 Rx doxycycline hyclate 100 mg tablet 100 mg PO BID 7 days #14 tabs 10/08/21 10/13/21 Rx ondansetron 4 mg disintegrating 4 - 8 mg PO Q6H PRN nausea and 10/08/21 10/13/21 Rx tablet vomiting #20 tabs eszopiclone 2 mg tablet (Lunesta) 2 mg PO ONCE PRN insomnia #30 tabs 10/13/21 10/13/21 Rx codeine 10 mg-guaifenesin 100 mg/5 5 ml PO Q6H PRN cough #118 mL 10/14/21 Rx mL oral liquid Past Med/Surg History Medical History Chronic low back pain PCP feels related to arthritis and DDD Chronic sinusitis Chronic and stable at this time - usually with weather changes Colitis, regional Usually with diarrhea but more constipated lately due to hiatal hernia symptoms Depression Dyspnea on effort OUT OF SHAPE Fibromyalgia Stable on Gabapentin per records Gastritis GERD without esophagitis Hand paresthesia Intermittent/chronic- patient states possibly due to arthritis or CTS (only occurs when on the computer for prolonged period of time - more so aches than numbness) Hiatal hernia Hypercholesterolemia Hypothyroidism Impaired fasting glucose Hgb A1C 5.9 in September 2020 Insomnia On Ambien and melatonin per records Migraines Obsessive compulsive disorder HX Pneumonia Hx of 2015 Polyarthritis of hand Restless leg PER RECORD-PT DENIES Stroke syndrome Neurologist dx years ago; incidentally found on MRI while checking her headaches No symptoms per patient Surgical History History of hysterectomy History of nasal surgery had polyp removed History of open reduction and internal fixation (ORIF) procedure left ankle History of repair of hiatal hernia (06/18/21) s Laparoscopic Cholecystectomy - Russell Connell, DO p Laparoscopic Hiatal Hernia Repair with 360 Gastric Fundoplication, Posterior Gastroplexy, - Russell Connell, History of tooth extraction Hx of cataract surgery right and left Hx of colonoscopy 2020 Dr. 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 Beliefs That Will Affect Care: None marital status: Current Living Situation: Spouse current occupational status: disabled How many Children do You have: 2 Feels Safe at Home: Yes Safety Concerns: Feels Safe At This Time caffeine: No during the past year weight has: increased > 10 lbs Dental Care, Regularly: Yes Physical Activity Frequency: Does not Exercise Seatbelt Use: always Sunscreen Use: No Assistive Devices: Cane Review of Systems Review of Systems: The patient denies chest pain, palpitations, shortness of breath, dyspnea on exertion, cough, lower extremity swelling, fevers, chills, sweats, diarrhea , constipation, blood in urine or stool, dysuria, urinary frequency or urgency, lightheadedness, dizziness, headache, memory loss, loss of consciousness, rash, abnormal bruising or bleeding, imbalance, focal weakness, numbness or tingling in arms or legs, generalized arthralgias or myalgias, back or neck pain, or night sweats. The review of systems is otherwise negative other than for that already noted above, and at least 10 systems have been reviewed. Physical Exam Physical Exam: The patient is awake, alert and oriented 3, well developed and well nourished, normocephalic and atraumatic, lying in bed and in no acute distress. HEENT--PERRL, EOMI, mucous membranes and oropharynx dry. Neck--supple. No JVD. No bruits. Thyroid normal, trachea midline, no adenopathy. Heart--normal S1 and S2. No murmurs, rubs or gallops. Lungs--clear bilaterally, no respiratory distress, no accessory muscle use. Abdomen--normal bowel sounds and soft. Nontender. Nondistended Extremities--no cyanosis or clubbing. No edema. Dermatologic--normal skin turgor, normal color, no abnormal lymph nodes, no rash. Neurologic--cranial nerves II through XII grossly intact. Rheumatologic--normal range of motion. Psychiatric--normal affect. Results & Data Results & Data ([facility]) Vital Signs (Past 12 Hours) Vital Signs Temp Pulse Pulse Resp BP BP Pulse Ox 10/14/21 21:01 91 H 16 95 10/14/21 21:00 93 H 18 132/97 95 10/14/21 17:37 36.4 C L 107 H 20 137/112 H 94 O2 Del Method 10/14/21 21:01 Room Air 10/14/21 21:00 Room Air 10/14/21 17:37 Room Air Laboratory Results Laboratory Results WBC 21.71 K/ul (4.8-10.8) H 10/14/21 18:40 RBC 4.90 M/uL (3.93-5.22) 10/14/21 18:40 Hgb 14.5 g/dl (12.0-16.0) 10/14/21 18:40 Hct 43.1 % (34.1-44.9) 10/14/21 18:40 MCV 88.0 fL (80.0-100.0) 10/14/21 18:40 MCH 29.6 pg (25.0-34.0) 10/14/21 18:40 MCHC 33.6 g/dL (32.0-36.0) 10/14/21 18:40 RDW Std Deviation 45.3 fL (36.4-46.3) 10/14/21 18:40 RDW Coeff of William 14.3 % (11.5-14.5) 10/14/21 18:40 Plt Count 550 K/uL (130-400) H 10/14/21 18:40 MPV 10.1 fL (9.4-12.3) 10/14/21 18:40 Immature Gran % (Auto) 0.6 % 10/14/21 18:40 Neut % (Auto) 70.1 % 10/14/21 18:40 Lymph % (Auto) 21.0 % 10/14/21 18:40 Towner % (Auto) 7.7 % 10/14/21 18:40 Eos % (Auto) 0.3 % 10/14/21 18:40 Baso % (Auto) 0.3 % 10/14/21 18:40 Neut # (Auto) 15.24 K/uL (1.4-6.5) H 10/14/21 18:40 Lymph # (Auto) 4.55 K/uL (1.2-3.4) H 10/14/21 18:40 Towner # (Auto) 1.67 K/uL (0.24-0.82) H 10/14/21 18:40 Eos # (Auto) 0.07 K/uL (0-0.50) 10/14/21 18:40 Baso # (Auto) 0.06 K/uL (0-0.2) 10/14/21 18:40 Immature Gran # (Auto) 0.12 K/uL (0.00-0.02) H 10/14/21 18:40 PT 12.1 Seconds (9.0-12.0) H 10/14/21 19:21 INR 1.1 (0.9-1.1) 10/14/21 19:21 APTT 27.6 Seconds (21.0-31.0) 10/14/21 19:21 PTT Ratio 1.0 10/14/21 19:21 Sodium 139 mmol/L (136-145) 10/14/21 18:40 Potassium 3.2 mmol/L (3.5-5.1) L 10/14/21 21:17 Chloride 99 mmol/L (98-107) 10/14/21 18:40 Carbon Dioxide 27 mmol/L (21-32) 10/14/21 18:40 Anion Gap 13 (3-11) H 10/14/21 18:40 BUN 20 mg/dl (6-23) 10/14/21 18:40 Creatinine 0.84 mg/dl (0.6-1.2) 10/14/21 18:40 Est Cr Clr Drug Dosing Not Reportable 10/14/21 18:40 Est GFR ( Amer) 83.9 ml/min 10/14/21 18:40 Est GFR (Non-Af Amer) 72.4 ml/min 10/14/21 18:40 BUN/Creatinine Ratio 23.8 (10-20) H 10/14/21 18:40 Glucose 95 mg/dl (70-99(Fasting)) 10/14/21 18:40 Lactate 1.1 mmol/L (0.4-2.0) 10/14/21 18:40 Calcium 9.6 mg/dl (8.5-10.1) 10/14/21 18:40 Phosphorus 2.8 mg/dl (2.5-4.9) 10/14/21 21:17 Magnesium 1.9 mg/dl (1.7-2.4) 10/14/21 18:40 Total Bilirubin 0.9 mg/dl (0.2-1.0) 10/14/21 18:40 AST 15 U/L (13-39) 10/14/21 21:17 ALT 21 U/L (7-52) 10/14/21 18:40 Alkaline Phosphatase 61 U/L (34-104) 10/14/21 18:40 Troponin I High Sens 9.0 pg/ml (0-14) D 10/14/21 18:40 Total Protein 7.0 gm/dl (6.0-8.3) 10/14/21 18:40 Albumin 3.9 gm/dl (3.4-5.0) 10/14/21 18:40 Globulin 3.1 gm/dl (2.5-4.0) 10/14/21 18:40 Albumin/Globulin Ratio 1.3 (0.9-2) 10/14/21 18:40 Amylase 25 U/L (25-115) 10/14/21 18:40 Lipase 8 U/L (11-82) L 10/14/21 18:40 Urine Color Dark Yellow 10/14/21 23:03 Urine Appearance Clear (Clear) 10/14/21 23:03 Urine pH 6.0 (4.5-7.5) 10/14/21 23:03 Ur Specific [place] > 1.045 (1.000-1.030) H 10/14/21 23:03 Urine Protein 1+ (Negative) H 10/14/21 23:03 Urine Glucose (UA) Negative (Negative) 10/14/21 23:03 Urine Ketones Trace (Negative) H 10/14/21 23:03 Urine Blood Negative (Negative) 10/14/21 23:03 Urine Nitrite Negative (Negative) 10/14/21 23:03 Urine Bilirubin Negative (Negative) 10/14/21 23:03 Urine Urobilinogen Negative (Negative) 10/14/21 23:03 Ur Leukocyte Esterase Negative (Negative) 10/14/21 23:03 Urine WBC (Auto) 1-5 /hpf (0-5) 10/14/21 23:03 Urine RBC (Auto) 10-30 /hpf (0-4) H 10/14/21 23:03 U Hyaline Cast (Auto) 0 /lpf (0-5) 10/14/21 23:03 U Epithel Cells (Auto) >30 /lpf (0-5) H 10/14/21 23:03 Urine Bacteria (Auto) Negative (Negative) 10/14/21 23:03 Urine Mucus Present (None Prsent) A 10/14/21 23:03 SARS-CoV-2, RNA, NAAT NEGATIVE (NEGATIVE) 10/14/21 22:55 Code Status & VTE Plan Code Status Full code VTE Prophylaxis Plan VTE Prophylaxis will be ordered: Yes PG Care Time/CCT Total # of Minutes Spent Total Time Spent with Patient: Total time spent is greater than 50% in coordination of care (as documented) at patient's floor/unit and/or counseling patient: Coding Level of Care Code 77771 Initial Inpt Care Lvl 3 Diagnoses Vomiting R11.2 Nausea presence: with nausea Vomiting type: unspecified History of repair of hiatal hernia Z98.890; Z87.19 Restless legs syndrome G25.81 Hiatal hernia with gastroesophageal reflux K21.9; K44.9 Hypothyroidism E03.9 Migraines G43.909 Fibromyalgia M79.7 Depression F32.9 Hypercholesterolemia E78.00 Insomnia G47.00 Obsessive compulsive disorder F42.9 (1) Vomiting Nausea presence: with nausea Vomiting type: unspecified Qualified Code(s): R11.2 - Nausea with vomiting, unspecified
[2021-10-14 23:45] LABS: Appearance Urine Clear (Clear); Bacteria Urine Automated Negative (Negative); Bilirubin Urine Negative (Negative); Blood Urine Negative (Negative); Color Urine Dark Yellow; Epithelial Cell Urine Auto >30 /lpf (0-5); Glucose Urine UA Negative (Negative); Ketones Urine Trace (Negative); Leukocyte Esterase Urine Negative (Negative); Nitrite Urine Negative (Negative); Protein Urine 1+ (Negative); Specific Gravity Urine > 1.045 (1.000-1.030); Urobilinogen Urine Negative (Negative)
[2021-10-15 00:37] LABS: Mucus Urine Present (None Prsent)
[2021-10-15] MEDS ORDERED: MoRPHine SULFATE 4 MG/ML 1 ML CARP\\VIAL IV PRN (00:42)
[2021-10-15 01:01] LABS: Cast Urine Automated 0 /lpf (0-5)
[2021-10-15] MEDS: NSS + 20MEQ KCL 20 MEQ/1,000 ML BAG IV SCH ×2 (01:09→10:43)
[2021-10-15] MEDS: PANTOprazole 40 MG in SYRINGE 0 ML IV SCH ×2 (01:10→09:15)
[2021-10-15 02:10] LABS: Phosphorus 2.8 mg/dl (2.5-4.9)
[2021-10-15] MEDS: PIPERACILLIN/TAZOBACTAM 4.5 GM in DEXTROSE 5% 100 ML IV SCH ×2 (02:43→09:15)
[2021-10-15] MEDS ORDERED: LIOTHYRONINE SODIUM 25 MCG TAB PO SCH (06:30)
[2021-10-15] MEDS ORDERED: LEVOTHYROXINE SODIUM 112 MCG TABLET PO SCH (06:30)
--- NOTE | 2021-10-15 08:09 | Hospitalist Progress Note ---
Date of Service October 15, 2021 Assessment & Plan (1) Vomiting: Plan: Uncontrolled nausea/vomiting/abdominal pain/status post repair of hiatal hernia 07/05- had recently been in ER and placed on Doxy and previously given prednisone by her PCP for a suspected bronchitis Of note, prior EGD w/ Dr Todd September 2020 with non-obstructing schatzki ring, dilated, along with gastritis, path w/ reactive cellular changes suggestive of reactive gastropathy Recurrence of hiatal hernia noted on CT scan General surgery consulted NPO for now Protonix 40mg PO IV BID (??if any garland ulcers given paraesophageal nature, ?GI consult, will await surgery input) Zosyn abx -- possible silent aspiration from emesis, also with colitis on CT imaging (note recent abx w/ doxy) Antiemetics, pain control prn NSS + 20meq Kcl@ 100cc/hr (K3.2, mag 1.9) *See below, hypothyroidism hx w/ recent TSH LOW On CT chest February 2021 does note 10mm precarinal lymph node, indeterminate, favored to be reactive. Also w/ pulmonary nodules but appeared stable compared to prior exam (and sclerotic focus of T10 vertebral body unchanged from 2014, likely benign) (2) Hypothyroidism: Plan: Also reviewed TSH earlier this year 0.010, Ft4 1.06 (TSH prior 0.03, prior to that was 34) -- Of note, PCP noted patient to have had a 50lb weight loss recently She is maintained typically on liothyronine 12.5mg daily, levothyroxine 112mcg daily ?ever had imaging of her thyroid? Will repeat TSH/T4/T3 for now, adjustments pending (3) History of repair of hiatal hernia: Plan: See above (4) Restless legs syndrome: Plan: checking iron studies/ferritin to be complete, mag wnl continue meds when able (5) Hiatal hernia with gastroesophageal reflux: Plan: See above placed on protonix IV BID for now (6) Migraines: Plan: Migraines/fibromyalgia/depression/insomnia/OCD- Continue melatonin and escitalopram (7) Fibromyalgia: (8) Depression: (9) Hypercholesterolemia: (10) Insomnia: (11) Obsessive compulsive disorder: Admission and Anticipated Discharge Date Admission Date: October 14, 2021 Subjective Vomited x 2-3 times this morning, reported simons ordered dose zofran, can continue if not effective will order phenergan She states has been vomiting for the past 2-3 weeks, thought it was related to bronchitis. Had been given doxycycline and steroids, had one more day of doxy. discussed conversation with surgery, and need to reach out to tertiary thoracic surgeon given reucrrance. pref [facility], back up [place], wherever can take first thyroid meds recently reduced fro 128 to 112mcg but hasn't been able to keep down for a past week. Results & Data Results & Data ([facility]) Vital Signs (Past 12 Hours) Vital Signs Temp Pulse Pulse Pulse Resp BP BP 10/15/21 00:10 10/15/21 00:10 36.4 C L 90 16 149/86 H 10/15/21 00:02 78 18 145/81 H 10/14/21 23:16 82 18 152/80 H 10/14/21 21:01 91 H 16 10/14/21 21:00 93 H 18 132/97 Pulse Ox O2 Del Method 10/15/21 00:10 Room Air 10/15/21 00:10 96 Room Air 10/15/21 00:02 93 Room Air 10/14/21 23:16 95 Room Air 10/14/21 21:01 95 Room Air 10/14/21 21:00 95 Room Air PG Care Time/CCT Total # of Minutes Spent Total Time Spent with Patient: Total time spent is greater than 50% in coordination of care (as documented) at patient's floor/unit and/or counseling patient: Coding Diagnoses Vomiting R11.2 Nausea presence: with nausea Vomiting type: unspecified Hypothyroidism E03.9 History of repair of hiatal hernia Z98.890; Z87.19 Restless legs syndrome G25.81 Hiatal hernia with gastroesophageal reflux K21.9; K44.9 Migraines G43.909 Fibromyalgia M79.7 Depression F32.9 Hypercholesterolemia E78.00 Insomnia G47.00 Obsessive compulsive disorder F42.9 (1) Vomiting Nausea presence: with nausea Vomiting type: unspecified Qualified Code(s): R11.2 - Nausea with vomiting, unspecified
[2021-10-15 08:22] LABS: Basophils # (auto) 0.03 K/uL (0-0.2); Basophils % (auto) 0.2 %; Eosinophils # (auto) 0.14 K/uL (0-0.50); Eosinophils % (auto) 1.1 %; Hemoglobin 12.9 g/dl (12.0-16.0); Immature Granulocytes # (auto) 0.06 K/uL (0.00-0.02); Immature Granulocytes % (auto) 0.5 %; Lymphocytes # (auto) 4.05 K/uL (1.2-3.4); Lymphocytes % (auto) 33.2 %; Mean Corpuscular Hemoglobin 29.2 pg (25.0-34.0); Mean Corpuscular Hgb Conc 33.1 g/dL (32.0-36.0); Mean Corpuscular Volume 88.2 fL (80.0-100.0); Mean Platelet Volume 10.3 fL (9.4-12.3); Monocytes # (auto) 1.12 K/uL (0.24-0.82); Monocytes % (auto) 9.2 %; Neutrophils % (auto) 55.8 %; Platelet Count 467 K/uL (130-400); RDW Coefficient of Variation 14.6 % (11.5-14.5); RDW Standard Deviation 46.5 fL (36.4-46.3); Red Blood Count 4.42 M/uL (3.93-5.22)
--- NOTE | 2021-10-15 08:35 | CT Scan Report ---
CT SCAN OF THE ABDOMEN AND PELVIS WITH IV CONTRAST CLINICAL HISTORY: Epigastric abdominal pain. Recent fundoplication and cholecystectomy. COMPARISON STUDY: Abdominal CT dated 02/24/2021. TECHNIQUE: Following the IV administration of 99 cc of Optiray 300, CT scan of the abdomen and pelvi s is performed from the lung bases to the proximal femora. Images are reviewed in the axial, sagittal , and coronal planes. IV contrast was administered without complication. A dose lowering technique wa s utilized adhering to the principles of ALARA. CT DOSE: 1097.82 mGy.cm FINDINGS: Lung bases: The heart is normal in size and without pericardial effusion. Foci of tree-in-bud nodular ity are present at both lung bases. A 3 mm right lower lobe pulmonary nodule seen on image #13 is unc hanged. There is no lobar consolidation or pleural effusion. The distal esophagus is distended and fi lled with fluid. Liver: The contrast-enhanced liver is normal in size, contour, and attenuation. There is minimal intr ahepatic biliary ductal dilatation. The hepatic veins and portal veins are patent. Gallbladder: Surgically absent and clips in the gallbladder fossa. No fluid collection is seen in the gallbladder fossa. Spleen: Normal in size and attenuation. Pancreas: Unremarkable. Adrenal glands: A 2 cm low-attenuation right adrenal nodule is unchanged. This either represents an a denoma but cannot be definitively characterized due to the presence of IV contrast. The left adrenal gland is normal in appearance. Kidneys: The contrast enhanced kidneys demonstrate mild cortical atrophy and are without hydronephros is. The kidneys enhance symmetrically. A 6 mm angiomyolipoma is noted in the right kidney on image #1 53. Additional scattered subcentimeter cortical hypodensities likely represent cysts but are too smal l for definitive characterization. Abdominal vasculature: The abdominal aorta is normal in course and caliber noting moderate atheroscle rotic calcification. Stomach and bowel: There is a moderate to large fluid-filled hiatal hernia. Mild stranding is seen ar ound the diaphragmatic hiatus. There is moderate to advanced colonic diverticulosis without CT eviden ce of acute diverticulitis. No bowel obstruction is seen. The appendix is well-visualized and normal . Peritoneum: There is no intraperitoneal free air or abdominal ascites. There is a fat-containing umbi lical hernia. Lymphadenopathy: None. Pelvic viscera: The bladder is largely decompressed and grossly unremarkable. The uterus is surgicall y absent. No adnexal lesion is seen. Skeletal structures: The skeletal structures are osteopenic. There is mild lumbosacral spondylosis. N o lytic or blastic lesions are seen. IMPRESSION: 1. There is a moderate to large fluid-filled hiatal hernia, and the distal esophagus is distended and filled with fluid. Given the reported history of recent fundoplication, this likely represents some degree of obstruction at the diaphragmatic hiatus. This may be related to postsurgical edema. If ther e is concern for a mechanical obstruction then surgical assessment should be considered. 2. Status post cholecystectomy. No fluid collection is seen in the gallbladder fossa. 3. Moderate to advanced colonic diverticulosis without CT evidence of acute diverticulitis. 4. There are mild tree in bud airspace opacities seen in the lower lobes. Given the fluid-filled esop hagus this could be related to aspiration. Clinical correlation will be required. 5. Additional findings as above. ACT 112: Negative or not required by law. Electronically signed by: Messi Patricia M.D. 10/15/2021 8:33 AM
[2021-10-15 08:39] LABS: Albumin Globulin Ratio 1.4 (0.9-2); Albumin Level 3.4 gm/dl (3.4-5.0); BUN Creatinine Ratio 20.9 (10-20); Bilirubin,Total 1.1 mg/dl (0.2-1.0); Calcium 8.7 mg/dl (8.5-10.1); Creatinine Clr Calc Pharmacy 69.7 ml/min; Est GFR (African American) 76.2 ml/min; Est GFR (Non-African American) 65.7 ml/min; Globulin 2.5 gm/dl (2.5-4.0); Magnesium 1.8 mg/dl (1.7-2.4); Phosphorus 3.7 mg/dl (2.5-4.9); Potassium 3.5 mmol/L (3.5-5.1); Total Protein 5.9 gm/dl (6.0-8.3)
[2021-10-15 08:40] LABS: Iron 56 mcg/dl (35-150); Total Iron Binding Cap Calc 326 mcg/dl (250-450); Transferrin (FE) Percent Satur 17 % (15-50); Unsaturated Iron Binding Cap 270 mcg/dl (155-355)
[2021-10-15 08:57] LABS: Thyroid Stimulating Hormone 4.691 uIu/ml (0.300-4.500)
[2021-10-15 09:21] LABS: Ferritin 50.3 ng/ml (8-388)
[2021-10-15 09:29] LABS: T4 Free Thyroxine 0.77 ng/dl (0.61-1.60)
[2021-10-15 09:30] LABS: T3 Free 2.14 pg/ml (2.3-4.2)
[2021-10-15] MEDS ORDERED: ONDANSETRON INJ 2 MG/ML 2 ML VIAL IV PRN (11:13)
[2021-10-15] MEDS ORDERED: MAGNESIUM SULFATE / D5W 1 GM/100 ML BAG IV ONE (11:14)
--- NOTE | 2021-10-15 14:52 | Discharge Summary ---
Date of Service October 15, 2021 Admission HPI Per Admitting Provider The patient is a 66-year-old female with a past medical history including repair of a paraesophageal hiatal hernia, restless leg syndrome, GERD, migraine, incarcerated hiatal hernia, hypothyroidism, hypercholesterolemia, stroke syndrome, vitamin D deficiency and pneumonia. She was assessed by general surgery in the ED this evening, due to a recurrence of symptoms and CT scan suggesting a recurrence of her recently repaired paraesophageal hiatal hernia. Medicine was asked admit patient for symptom control and further work-up Admission Exam Per Admitting Provider The patient is awake, alert and oriented 3, well developed and well nourished, normocephalic and atraumatic, lying in bed and in no acute distress. HEENT--PERRL, EOMI, mucous membranes and oropharynx dry. Neck--supple. No JVD. No bruits. Thyroid normal, trachea midline, no adenopathy. Heart--normal S1 and S2. No murmurs, rubs or gallops. Lungs--clear bilaterally, no respiratory distress, no accessory muscle use. Abdomen--normal bowel sounds and soft. Nontender. Nondistended Extremities--no cyanosis or clubbing. No edema. Dermatologic--normal skin turgor, normal color, no abnormal lymph nodes, no rash. Neurologic--cranial nerves II through XII grossly intact. Rheumatologic--normal range of motion. Psychiatric--normal affect. Principal Diagnosis Intractable n/v, Recurrence of hiatal hernia following oliva fundoplication Discharge Data Allergies Allergy/AdvReac Type Severity Reaction Status Date / Time No Known Allergies Allergy Verified 10/13/21 15:20 Consultations 10/14/21 22:19 ED Decision to Admit Stat 10/15/21 11:16 Consult General Surgery Routine 10/15/21 13:21 Burn CD for patient Stat Ordered Studies Abdomen/Pelvis CT 10/14/21 20:38 CT SCAN OF THE ABDOMEN AND PELVIS WITH IV CONTRAST CLINICAL HISTORY: Epigastric abdominal pain. Recent fundoplication and cholecystectomy. COMPARISON STUDY: Abdominal CT dated 02/24/2021. TECHNIQUE: Following the IV administration of 99 cc of Optiray 300, CT scan of the abdomen and pelvis is performed from the lung bases to the proximal femora. Images are reviewed in the axial, sagittal, and coronal planes. IV contrast was administered without complication. A dose lowering technique was utilized adhering to the principles of ALARA. CT DOSE: 1097.82 mGy.cm FINDINGS: Lung bases: The heart is normal in size and without pericardial effusion. Foci of tree-in-bud nodularity are present at both lung bases. A 3 mm right lower lobe pulmonary nodule seen on image #13 is unchanged. There is no lobar consolidation or pleural effusion. The distal esophagus is distended and filled with fluid. Liver: The contrast-enhanced liver is normal in size, contour, and attenuation. There is minimal intrahepatic biliary ductal dilatation. The hepatic veins and portal veins are patent. Gallbladder: Surgically absent and clips in the gallbladder fossa. No fluid collection is seen in the gallbladder fossa. Spleen: Normal in size and attenuation. Pancreas: Unremarkable. Adrenal glands: A 2 cm low-attenuation right adrenal nodule is unchanged. This either represents an adenoma but cannot be definitively characterized due to the presence of IV contrast. The left adrenal gland is normal in appearance. Kidneys: The contrast enhanced kidneys demonstrate mild cortical atrophy and are without hydronephrosis. The kidneys enhance symmetrically. A 6 mm angiomyolipoma is noted in the right kidney on image #153. Additional scattered subcentimeter cortical hypodensities likely represent cysts but are too small for definitive characterization. Abdominal vasculature: The abdominal aorta is normal in course and caliber noting moderate atherosclerotic calcification. Stomach and bowel: There is a moderate to large fluid-filled hiatal hernia. Mild stranding is seen around the diaphragmatic hiatus. There is moderate to advanced colonic diverticulosis without CT evidence of acute diverticulitis. No bowel obstruction is seen. The appendix is well-visualized and normal. Peritoneum: There is no intraperitoneal free air or abdominal ascites. There is a fat-containing umbilical hernia. Lymphadenopathy: None. Pelvic viscera: The bladder is largely decompressed and grossly unremarkable. The uterus is surgically absent. No adnexal lesion is seen. Skeletal structures: The skeletal structures are osteopenic. There is mild lumbosacral spondylosis. No lytic or blastic lesions are seen. IMPRESSION: 1. There is a moderate to large fluid-filled hiatal hernia, and the distal esophagus is distended and filled with fluid. Given the reported history of recent fundoplication, this likely represents some degree of obstruction at the diaphragmatic hiatus. This may be related to postsurgical edema. If there is concern for a mechanical obstruction then surgical assessment should be considered. 2. Status post cholecystectomy. No fluid collection is seen in the gallbladder fossa. 3. Moderate to advanced colonic diverticulosis without CT evidence of acute diverticulitis. 4. There are mild tree in bud airspace opacities seen in the lower lobes. Given the fluid-filled esophagus this could be related to aspiration. Clinical correlation will be required. 5. Additional findings as above. ACT 112: Negative or not required by law. Electronically signed by: Messi Patricia M.D. 10/15/2021 8:33 AM Hospital Course (1) Vomiting: Uncontrolled nausea/vomiting/abdominal pain/status post repair of hiatal hernia 07/05- had recently been in ER and placed on Doxy and previously given prednisone by her PCP for a suspected bronchitis (COVID negative) Of note, prior EGD w/ Dr Case September 2020 with non-obstructing schatzki ring, dilated, along with gastritis, path w/ reactive cellular changes suggestive of reactive gastropathy Recurrence of hiatal hernia noted on CT scan Had laparoscopic cholecystectomy and incarcerated hernia repair with gastric fundoplication on 06/30/[address] Connell. General surgery consulted NPO for now Zosyn abx -- possible silent aspiration from emesis, also with colitis on CT imaging (note recent abx w/ doxy) WBC 21k--> 12.2k, afebrile ?reactive from n/v, aspiration pneumonia. regardless, covering with Zosyn Protonix 40mg PO IV BID (??if any garland ulcers given paraesophageal nature, ?GI consult, will await surgery input) Attempted to place NGT --> patient projectile vomiting Antiemetics , pain control prn-- Zofran added, phenergan if ineffective IVF suppoer + 20meq Kcl Discussed with surgery and recommendations for transfer for thoracic surgery Called [facility], spoke with thoracic surgeon, recommended minimally invasive surgeon Spoke with Dr Pace, accepted in transfer As no surgical beds for 24 hours, Fr Pace accepted to PACU and plans to take to surgery once arrives and will worry about bed after (2) Hypothyroidism: Also reviewed TSH earlier this year 0.010, Ft4 1.06 (TSH prior 0.03, prior to that was 34) -- Of note, PCP noted patient to have had a 50lb weight loss recently She is maintained typically on liothyronine 12.5mg daily, levothyroxine 112mcg daily Repeat TSH 4.69, Free T3 2.14 Low She states she recently had her levothyroxine to 112mcg but hasn't been able to keep down due to N/v Recommend repeat w/ PCP once recovered from above and able to take adequately Consider IV replacement at [facility] pending NPO course Incidental findings noted on CT chest February 2021 does note 10mm precarinal lymph node, indeterminate, favored to be reactive. Never had thyroid US Also w/ pulmonary nodules but appeared stable compared to prior exam (and sclerotic focus of T10 vertebral body unchanged from 2014, likely benign) (3) History of repair of hiatal hernia: See above (4) Restless legs syndrome: continue meds when able ferritin wnl 50 (5) Hiatal hernia with gastroesophageal reflux: See above placed on protonix IV BID for now while npo (6) Migraines: Migraines/fibromyalgia/depression/insomnia/OCD- usually on melatonin/lexapro no migraine reported (7) Fibromyalgia: pain control (8) Depression: (9) Hypercholesterolemia: (10) Insomnia: (11) Obsessive compulsive disorder: Total Time Total Time Spent Total Time Spent (In Minutes): 70 Discharge Plan Discharge Items Patient Disposition: Transfer Acute Care Hospital Reason For Visit: PANCOLITIS, INTRACTABLE N/V Discharge Diagnosis: Recurrent Hiatal Hernia, Possible Aspiration Pneumonia Activity: As commented below Non-emergency contact: Primary Care Provider Call non-emergency contact if: you have any medication questions Follow-up/Referrals: Iesha Smith MD [Primary Care Provider] - Diet: Nothing by Mouth Addtl Attending Provider Instructions: You have been evaluated inpatient and given complex nature and recurrence of paraesophageal hernia and need for surgical intervention arrangements have been made for [facility]. It has been a pleasure taking care of you and I wish you the best! Pending Studies at Discharge: No Stand-Alone Forms: My [facility] Skilled Items Patient informed of condition?: Yes DNR: No Discharge Level of Care: Other Communicable Disease: No Discharge Prognosis: Stable Lines: Peripheral IV Urinary Catheter: No Medications and DC Order Prescriptions: Continued Dexilant 60 mg capsule,biphase delayed releas 60 mg PO QAM Qty: 90 3RF Label Comments: ON HOLD, insurance wont cover levothyroxine 112 mcg tablet 112 mcg PO DAILY Qty: 30 3RF gabapentin 400 mg capsule 400 mg PO TID Qty: 270 0RF atorvastatin 20 mg tablet 20 mg PO QAM Qty: 90 1RF escitalopram oxalate 10 mg tablet 10 mg PO DAILY Qty: 90 3RF liothyronine 25 mcg tablet 12.5 mcg PO QAM Qty: 45 3RF amoxicillin-pot clavulanate 875-125 mg tablet 1 tab PO Q12H Qty: 20 0RF Label Comments: started on 09/30, has been vommiting since. prednisone 20 mg tablet See Rx Instructions PO .COMPLEX Qty: 30 0RF Rx Instructions: 3 tabs PO daily X 5 days, then 2 tabs PO daily X 5 days, then 1 tab PO daily X 5 days, then stop. codeine-guaifenesin 10-100 mg/5 mL liquid 5 ml PO Q6H PRN (Reason: cough) Qty: 118 0RF Excedrin Extra Strength 250-250-65 mg tablet 1 tab PO Q6H PRN (Reason: Migraine Headache) Adult 50 Plus Probiotic 4 billion cell capsule 4,000 mmu cells PO DAILY Rx Instructions: administer with a meal vitamin B complex Capsule 1 cap PO QAM melatonin 5 mg Tablet 10 mg PO HS cholecalciferol (vitamin D3) [Vitamin D3] 125 mcg (5,000 unit) Tablet 125 mcg PO QAM diclofenac sodium 1 % Gel 2 g TOPICAL QID PRN (Reason: Pain) benzonatate 200 mg capsule 200 mg PO TID PRN (Reason: cough) Qty: 40 0RF albuterol sulfate 90 mcg/actuation HFA aerosol inhaler 3 inh inhalation Q6H Qty: 18 2RF ondansetron 4 mg tablet,disintegrating 4 - 8 mg PO Q6H PRN (Reason: nausea and vomiting) Qty: 20 1RF cyclobenzaprine 5 mg tablet 5 mg PO TID PRN (Reason: muscle spasm) Qty: 10 0RF No Action ramelteon 8 mg tablet 8 mg PO HS PRN (Reason: sleep) Qty: 20 0RF Discharge Orders: Discharge Order (Routine); Ordered 10/15/21 Ordered By: Tamara Chamorro Admission Data Admit Date/Time: 10/14/21 22:53 Attending Provider: Ori House Admit Provider: Pancho Morrison Primary Care Provider: Iesha Smith Other Providers: Pancho Morrison ; Russell Connell. Other Interventions: Discharge Summary Assessment (RN) Last Done: 10/15/21 14:26 Supervising Physician Co-Signing Physician Notes Attending Attestation - Please see my attestation on d/c summary from same date but that was composed at a later time. Ori House MD Coding Level of Care Code D/C DAY MANAGEMENT >30 MINS Diagnoses Vomiting R11.2 Nausea presence: with nausea Vomiting type: unspecified Hypothyroidism E03.9 History of repair of hiatal hernia Z98.890; Z87.19 Restless legs syndrome G25.81 Hiatal hernia with gastroesophageal reflux K21.9; K44.9 Migraines G43.909 Fibromyalgia M79.7 Depression F32.9 Hypercholesterolemia E78.00 Insomnia G47.00 Obsessive compulsive disorder F42.9
--- NOTE | 2021-10-15 14:58 | Discharge Summary ---
Date of Service October 15, 2021 Admission HPI Per Admitting Provider The patient is a 66-year-old female with a past medical history including repair of a paraesophageal hiatal hernia, restless leg syndrome, GERD, migraine, incarcerated hiatal hernia, hypothyroidism, hypercholesterolemia, stroke syndrome, vitamin D deficiency and pneumonia. She was assessed by general surgery in the ED this evening, due to a recurrence of symptoms and CT scan suggesting a recurrence of her recently repaired paraesophageal hiatal hernia. Medicine was asked admit patient for symptom control and further work-up Admission Exam Per Admitting Provider The patient is awake, alert and oriented 3, well developed and well nourished, normocephalic and atraumatic, lying in bed and in no acute distress. HEENT--PERRL, EOMI, mucous membranes and oropharynx dry. Neck--supple. No JVD. No bruits. Thyroid normal, trachea midline, no adenopathy. Heart--normal S1 and S2. No murmurs, rubs or gallops. Lungs--clear bilaterally, no respiratory distress, no accessory muscle use. Abdomen--normal bowel sounds and soft. Nontender. Nondistended Extremities--no cyanosis or clubbing. No edema. Dermatologic--normal skin turgor, normal color, no abnormal lymph nodes, no rash. Neurologic--cranial nerves II through XII grossly intact. Rheumatologic--normal range of motion. Psychiatric--normal affect. Principal Diagnosis Intractable n/v, Recurrence of hiatal hernia following oliva fundoplication Discharge Exam General: WD/WN female sitting up in bed, mildly uncomfortable but no acute distress (reported just vomiting) HEENT: head normocephalic, atraumatic, pupils equal, mm dry Neck: supple, no tracheal deviation Resp: CTAB, diminished in the bases with crackles RML, no wheezing, on RA CV: RRR, no m/r/g, no calf edema or tenderness, pulses palpable GI prior lab scars well healed, mildly tender epigastric region, no rigidity, voluntary guarding, no rebound tenderness MSK/Neuro: moves all extremities, no focal deficit Psych: AOX3, cooperative, anxious about transfer Skin: warm, dry Discharge Data Allergies Allergy/AdvReac Type Severity Reaction Status Date / Time No Known Allergies Allergy Verified 10/13/21 15:20 Consultations 10/14/21 22:19 ED Decision to Admit Stat 10/15/21 11:16 Consult General Surgery Routine 10/15/21 13:21 Burn CD for patient Stat Ordered Studies Abdomen/Pelvis CT 10/14/21 20:38 CT SCAN OF THE ABDOMEN AND PELVIS WITH IV CONTRAST CLINICAL HISTORY: Epigastric abdominal pain. Recent fundoplication and cholecystectomy. COMPARISON STUDY: Abdominal CT dated 02/24/2021. TECHNIQUE: Following the IV administration of 99 cc of Optiray 300, CT scan of the abdomen and pelvis is performed from the lung bases to the proximal femora. Images are reviewed in the axial, sagittal, and coronal planes. IV contrast was administered without complication. A dose lowering technique was utilized adhering to the principles of ALARA. CT DOSE: 1097.82 mGy.cm FINDINGS: Lung bases: The heart is normal in size and without pericardial effusion. Foci of tree-in-bud nodularity are present at both lung bases. A 3 mm right lower lobe pulmonary nodule seen on image #13 is unchanged. There is no lobar consolidation or pleural effusion. The distal esophagus is distended and filled with fluid. Liver: The contrast-enhanced liver is normal in size, contour, and attenuation. There is minimal intrahepatic biliary ductal dilatation. The hepatic veins and portal veins are patent. Gallbladder: Surgically absent and clips in the gallbladder fossa. No fluid collection is seen in the gallbladder fossa. Spleen: Normal in size and attenuation. Pancreas: Unremarkable. Adrenal glands: A 2 cm low-attenuation right adrenal nodule is unchanged. This either represents an adenoma but cannot be definitively characterized due to the presence of IV contrast. The left adrenal gland is normal in appearance. Kidneys: The contrast enhanced kidneys demonstrate mild cortical atrophy and are without hydronephrosis. The kidneys enhance symmetrically. A 6 mm angiomyolipoma is noted in the right kidney on image #153. Additional scattered subcentimeter cortical hypodensities likely represent cysts but are too small for definitive characterization. Abdominal vasculature: The abdominal aorta is normal in course and caliber noting moderate atherosclerotic calcification. Stomach and bowel: There is a moderate to large fluid-filled hiatal hernia. Mild stranding is seen around the diaphragmatic hiatus. There is moderate to advanced colonic diverticulosis without CT evidence of acute diverticulitis. No bowel obstruction is seen. The appendix is well-visualized and normal. Peritoneum: There is no intraperitoneal free air or abdominal ascites. There is a fat-containing umbilical hernia. Lymphadenopathy: None. Pelvic viscera: The bladder is largely decompressed and grossly unremarkable. The uterus is surgically absent. No adnexal lesion is seen. Skeletal structures: The skeletal structures are osteopenic. There is mild lumbosacral spondylosis. No lytic or blastic lesions are seen. IMPRESSION: 1. There is a moderate to large fluid-filled hiatal hernia, and the distal esophagus is distended and filled with fluid. Given the reported history of recent fundoplication, this likely represents some degree of obstruction at the diaphragmatic hiatus. This may be related to postsurgical edema. If there is concern for a mechanical obstruction then surgical assessment should be considered. 2. Status post cholecystectomy. No fluid collection is seen in the gallbladder fossa. 3. Moderate to advanced colonic diverticulosis without CT evidence of acute diverticulitis. 4. There are mild tree in bud airspace opacities seen in the lower lobes. Given the fluid-filled esophagus this could be related to aspiration. Clinical correlation will be required. 5. Additional findings as above. ACT 112: Negative or not required by law. Electronically signed by: Messi Patricia M.D. 10/15/2021 8:33 AM Hospital Course (1) Vomiting: Uncontrolled nausea/vomiting/abdominal pain/status post repair of hiatal hernia 07/05- had recently been in ER and placed on Doxy and previously given prednisone by her PCP for a suspected bronchitis (COVID negative) Of note, prior EGD w/ Dr Todd September 2020 with non-obstructing schatzki ring, dilated, along with gastritis, path w/ reactive cellular changes suggestive of reactive gastropathy Recurrence of hiatal hernia noted on CT scan Had laparoscopic cholecystectomy and incarcerated hernia repair with gastric fundoplication on 06/30/[address] Connell. General surgery consulted NPO for now Zosyn abx -- possible silent aspiration from emesis, also with colitis on CT imaging (note recent abx w/ doxy) WBC 21k--> 12.2k, afebrile ?reactive from n/v, aspiration pneumonia. regardless, covering with Zosyn Protonix 40mg PO IV BID (??if any garland ulcers given paraesophageal nature, ?GI consult, will await surgery input) Attempted to place NGT --> patient projectile vomiting Antiemetics , pain control prn-- Zofran added, Phenergan if ineffective IVF suppoer + 20meq Kcl Discussed with surgery and recommendations for transfer for thoracic surgery Called [facility], spoke with thoracic surgeon, recommended minimally invasive surgeon Spoke with Dr Pace, accepted in transfer As no surgical beds for 24 hours, Fr Pace accepted to PACU and plans to take to surgery once arrives and will worry about bed after (2) Hypothyroidism: Also reviewed TSH earlier this year 0.010, Ft4 1.06 (TSH prior 0.03, prior to that was 34) -- Of note, PCP noted patient to have had a 50lb weight loss recently She is maintained typically on liothyronine 12.5mg daily, levothyroxine 112mcg daily Repeat TSH 4.69, Free T3 2.14 Low She states she recently had her levothyroxine to 112mcg but hasn't been able to keep down due to N/v Recommend repeat w/ PCP once recovered from above and able to take adequately Consider IV replacement at [place] pending NPO course Incidental findings noted on CT chest February 2021 does note 10mm precarinal lymph node, indeterminate, favored to be reactive. Never had thyroid US Also w/ pulmonary nodules but appeared stable compared to prior exam (and sclerotic focus of T10 vertebral body unchanged from 2014, likely benign) (3) History of repair of hiatal hernia: See above (4) Restless legs syndrome: continue meds when able ferritin wnl 50 (5) Hiatal hernia with gastroesophageal reflux: See above placed on protonix IV BID for now while npo (6) Migraines: Migraines/fibromyalgia/depression/insomnia/OCD- usually on melatonin/lexapro no migraine reported (7) Fibromyalgia: pain control (8) Depression: (9) Hypercholesterolemia: (10) Insomnia: (11) Obsessive compulsive disorder: (12) Aspiration pneumonia: Treated with IV zosyn while here. (13) Severe protein-calorie malnutrition: 13kg weight loss since earlier in 2021. 2nd to GI intolerance in the setting of recurrence of her paraesophageal hernia. Total Time Total Time Spent Total Time Spent (In Minutes): 70 Discharge Plan Discharge Items Patient Disposition: Transfer Acute Care Hospital Reason For Visit: PANCOLITIS, INTRACTABLE N/V Discharge Diagnosis: Recurrent Hiatal Hernia, Possible Aspiration Pneumonia Activity: As commented below Non-emergency contact: Primary Care Provider Call non-emergency contact if: you have any medication questions Follow-up/Referrals: Iesha Smith MD [Primary Care Provider] - Diet: Nothing by Mouth Addtl Attending Provider Instructions: You have been evaluated inpatient and given complex nature and recurrence of paraesophageal hernia and need for surgical intervention arrangements have been made for [facility]. It has been a pleasure taking care of you and I wish you the best! Pending Studies at Discharge: No Stand-Alone Forms: My [facility] Skilled Items Patient informed of condition?: Yes DNR: No Discharge Level of Care: Other Communicable Disease: No Discharge Prognosis: Stable Lines: Peripheral IV Urinary Catheter: No Medications and DC Order Prescriptions: Continued Dexilant 60 mg capsule,biphase delayed releas 60 mg PO QAM Qty: 90 3RF Label Comments: ON HOLD, insurance wont cover levothyroxine 112 mcg tablet 112 mcg PO DAILY Qty: 30 3RF gabapentin 400 mg capsule 400 mg PO TID Qty: 270 0RF atorvastatin 20 mg tablet 20 mg PO QAM Qty: 90 1RF escitalopram oxalate 10 mg tablet 10 mg PO DAILY Qty: 90 3RF liothyronine 25 mcg tablet 12.5 mcg PO QAM Qty: 45 3RF amoxicillin-pot clavulanate 875-125 mg tablet 1 tab PO Q12H Qty: 20 0RF Label Comments: started on 09/30, has been vommiting since. prednisone 20 mg tablet See Rx Instructions PO .COMPLEX Qty: 30 0RF Rx Instructions: 3 tabs PO daily X 5 days, then 2 tabs PO daily X 5 days, then 1 tab PO daily X 5 days, then stop. codeine-guaifenesin 10-100 mg/5 mL liquid 5 ml PO Q6H PRN (Reason: cough) Qty: 118 0RF Excedrin Extra Strength 250-250-65 mg tablet 1 tab PO Q6H PRN (Reason: Migraine Headache) Adult 50 Plus Probiotic 4 billion cell capsule 4,000 mmu cells PO DAILY Rx Instructions: administer with a meal vitamin B complex Capsule 1 cap PO QAM melatonin 5 mg Tablet 10 mg PO HS cholecalciferol (vitamin D3) [Vitamin D3] 125 mcg (5,000 unit) Tablet 125 mcg PO QAM diclofenac sodium 1 % Gel 2 g TOPICAL QID PRN (Reason: Pain) benzonatate 200 mg capsule 200 mg PO TID PRN (Reason: cough) Qty: 40 0RF albuterol sulfate 90 mcg/actuation HFA aerosol inhaler 3 inh inhalation Q6H Qty: 18 2RF ondansetron 4 mg tablet,disintegrating 4 - 8 mg PO Q6H PRN (Reason: nausea and vomiting) Qty: 20 1RF cyclobenzaprine 5 mg tablet 5 mg PO TID PRN (Reason: muscle spasm) Qty: 10 0RF No Action ramelteon 8 mg tablet 8 mg PO HS PRN (Reason: sleep) Qty: 20 0RF Discharge Orders: Discharge Order (Routine); Ordered 10/15/21 Ordered By: Tamara Chamorro Admission Data Admit Date/Time: 10/14/21 22:53 Attending Provider: Ori House Admit Provider: Pancho Morrison Primary Care Provider: Iesha Smith Other Providers: Pancho Morrison ; Russell Connell Other Interventions: Discharge Summary Assessment (RN) Last Done: 10/15/21 14:26 Supervising Physician Co-Signing Physician Notes Attending Attestation & Discharge note: Pt seen/examined, chart reviewed, care plan d/w PA Tamara Chamorro. I agree w/ the lao components of her documentation. 66yo female - s/p Laparoscopic Cholecystectomy, Laparoscopic Hiatal Hernia Repair with 360 Gastric Fundoplication, and Posterior Gastroplexy by Dr Russell Connell in June 2021 - presented with ongoing respiratory symptoms (cough, congestion, wheezing) along with persistent vomiting and inability to eat/drink & keep it down. CT chest with evidence of aspiration pneumonia as well as recurrence of her paraesophageal hernia. The CT suggested "possible obstruction at the diaphragmatic hiatus." General surgery saw patient in consult and advised transfer to tertiary care for repeat surgery to fix the recurrent paraesophageal hernia. Aspiration pneumonia was treated with IV zosyn. Ms Chamorro spoke with surgery at [facility] in [place] and she has been accepted there in transfer for ongoing care and treatment. Discharge exam - gen - coughing, no distress mouth - MMM neck - no JVD heart - RRR, s1 s2 lungs - diffuse b/l wheezes, basilar rales abd - soft NT ND BS+ ext - no edema, pulses 2+ b/l Ori House MD Coding Level of Care Code D/C DAY MANAGEMENT >30 MINS Diagnoses Vomiting R11.2 Nausea presence: with nausea Vomiting type: unspecified Hypothyroidism E03.9 History of repair of hiatal hernia Z98.890; Z87.19 Restless legs syndrome G25.81 Hiatal hernia with gastroesophageal reflux K21.9; K44.9 Migraines G43.909 Fibromyalgia M79.7 Depression F32.9 Hypercholesterolemia E78.00 Insomnia G47.00 Obsessive compulsive disorder F42.9 Aspiration pneumonia J69.0 Severe protein-calorie malnutrition E43
--- NOTE | 2021-10-15 16:13 | Surgery Progress Note ---
Date of Service October 15, 2021 Assessment & Plan (1) Hiatal hernia: Plan: Suspect retching may have caused the crural sutures to tear. I suspect the fundoplication is within the chest cavity. Recommend transfer to tertiary center for possible thoracic repair from above versus repair from below with a biologic mesh. This is outside the scope of our facility. I spoke with the surgeon from [facility] who has agreed to accept her to be transferred today. She agrees with the plan. (2) History of repair of hiatal hernia: Admission and Anticipated Discharge Date Admission Date: October 14, 2021 Subjective Patient seen. Continues to feel poorly with nausea. States she felt she had a gastroenteritis several weeks ago and has been trouble with intake and vomiting since then. Prior to that had been doing great with her hiatal hernia/fundoplication. Physical Exam Physical Exam: Alert. Appears fatigued. Dry mucous membranes. Eyes: PERRL, conjunctivae normal, anicteric sclerae EOM intact bilaterally ENMT: external ear and nose normal, oropharynx normal Ears: no hearing impairment Neck: trachea midline, no thyromegaly Respiratory: normal respiratory effort; no respiratory distress and does not use accessory muscles Cardiovascular: Rate/Rhythm: regular rate and regular rhythm Gastrointestinal (Abdomen): Soft. Mild epigastric tenderness. No peritoneal signs. Skin: no rashes, warm and dry Psychiatric: Orientation: alert, oriented x 3 and cooperative Results & Data ([facility]) Vital Signs (Past 12 Hours) Vital Signs Temp Pulse Resp BP Pulse Ox O2 Del Method 10/15/21 14:26 36.5 C 65 20 125/80 90 10/15/21 09:20 Room Air 10/15/21 07:40 36.5 C 65 20 125/80 90 Room Air PG Care Time/CCT Total # of Minutes Spent Total Time Spent with Patient: Total time spent is greater than 50% in coordination of care (as documented) at patient's floor/unit and/or counseling patient: Coding Level of Care Code 46728 Subseq Hosp Care Lvl 3 Diagnoses Hiatal hernia K44.9 History of repair of hiatal hernia Z98.890; Z87.19
--- NOTE | 2021-10-15 17:41 | Electrocardiogram Report ---
Test Reason : Blood Pressure : / mmHG Vent. Rate : 095 BPM Atrial Rate : 095 BPM P-R Int : 120 ms QRS Dur : 074 ms QT Int : 338 ms P-R-T Axes : 036 044 071 degrees QTc Int : 424 ms Normal sinus rhythm Nonspecific ST and T wave abnormality Abnormal ECG When compared with ECG of 24-SEP-2021 09:04, No significant change was found Confirmed by Jimy Doss ([id number]) on 10/15/2021 5:41:22 PM Referred By: REFERRED SELF Confirmed By:Prabhu Doss
[2021-10-15] MEDS ORDERED: MELATONIN 3 MG TAB PO SCH (21:00)
== END 2021-10-15 15:01 | disposition short-term general hospital (02) | DRG 391 ==
LOC: ED 17:23 → SUATTDRO 22:53 → 3E 22:53